=== PATIENT | female | born 1950 | race Caucasian/White ===

== ENCOUNTER 2024-12-19 15:52 | Inpatient (IN) | payer OTHER, SELFPAY ==
[2024-12-19 12:06] VITALS: BP 124/83
[2024-12-19 12:32] LABS: Hematocrit 39.9 % (37.0-47.0); Hemoglobin 13.8 g/dL (12.0-16.0); Mean Corp Hgb Conc. 34.6 g/dL (33.0-37.0); Mean Corpuscular Volume 91.9 fL (81.0-99.0); Nucleated Red Blood Cells % 0 %; Platelet Count 185 10^3/uL (130-400); Red Cell Dist. Width 18.1 % (11.5-14.5)
[2024-12-19 12:41] LABS: ALT (SGPT) 88 U/L (0-35); AST (SGOT) 274 U/L (14-36); Albumin 3.6 g/dl (3.5-5.0); Alkaline Phosphatase 193 U/L (38-126); Blood Urea Nitrogen 51 mg/dl (7-17); Calcium 8.8 mg/dl (8.4-10.2); Carbon Dioxide 19 mmol/L (22-30); Chloride 101 mmol/L (98-107); Glucose 96 mg/dl (70-99); Potassium 4.7 mmol/L (3.5-5.1); Sodium 132 mmol/L (135-145); Total Protein 6.8 g/dl (6.3-8.2); eGFR 33.84
--- NOTE | 2024-12-19 13:26 | ED.GENMED ---
Addendum entered and electronically signed by Cristopher Cortez DO 12/19/24 17:19:
Discussed with transfer center at [place] no beds are available at this time
Addendum entered and electronically signed by Cristopher Cortez DO 12/19/24 16:39:
Update family request transfer to [facility]
Will call to try to facilitate
Original Note:
History of Present Illness
General
Chief Complaint: Abnormal Lab Value
Source: patient, spouse and family
Exam Limitations: none
Time Seen by Provider: 12/19/24 12:57
Nursing documentation reviewed up to this point in time: agreed with
History of Present Illness
History of Present Illness:
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 intake symptoms started a few months ago when she and her spouse are in [place], on a cruise, had a sinus
infection that improved patient's symptoms never improved no fever no weight loss that she knows of, no known jaundice although she has a prosthetic right eye no seafood exposure, had outpatient blood work that showed elevated bili sent to the ER
for evaluation I did discuss her case with family and [id number] who is a hospitalist at [facility] apparently her ocular melanoma can metastasize
Phy Exam
Physical Exam
Physical Exam:
Physical Exam
General: no apparent distress, not acutely ill
Neck: Prosthetic right eye slight jaundice of the left
Heart: s1/s2 regular rate and rhythm, no murmur. equal radial pulses.
Lungs: no acute respiratory distress. clear bilaterally
Abdomen: Distended question mass to the upper abdomen
Neuro: alert and oriented. no focal neurological deficits
Skin: no rash
Psychiatric: well kept. interactive and cooperative
Extremities: no edema.
Course
Orders/Labs/Results
Orders:
Orders
12/19/24 12:23
Complete Blood Count/With Diff Urgent
Comprehensive Metabolic Panel Urgent
Lipase Urgent
Comment: ADD ON
12/19/24 13:15
CT Abd/pelvis W Iv Cont Urgent
Comment:
Reason For Exam: Abdominal pain jaundice history of melanoma
0.9% Sodium Chloride 1000 ml [Nss] 1,000 ml IV BOLUS
12/19/24 13:27
Add On- LAB Urgent
Tests Added?: lipase
12/19/24 13:34
Hepatitis A IgM Antibody Urgent
Hepatitis B Core Ab, IgM Urgent
Hepatitis B Surface Antibody Urgent
Hepatitis B Surface Antigen Urgent
Hepatitis C Antibody Urgent
Abnormal Lab Results
12/19/24
12:23
WBC 15.7 H 10^3/uL
(4.8-10.8)
MCH 31.8 H pg
(27.0-31.0)
RDW 18.1 H %
(11.5-14.5)
Abs Immat Gran (auto) 0.1 H 10^3/uL
(0-0.05)
Absolute Neuts (auto) 12.0 H 10^3/uL
(1.4-6.5)
Absolute Monos (auto) 1.2 H 10^3/uL
(0.1-0.6)
Immature Gran % 0.7 H %
(0-0.5)
Neutrophils % 76.1 H %
(42.2-75.2)
Lymphocytes % 15.3 L %
(20.5-51.1)
Sodium 132 L mmol/L
(135-145)
Carbon Dioxide 19 L mmol/L
(22-30)
BUN 51 H mg/dl
(7-17)
Creatinine 1.6 H mg/dL
(0.6-1.0)
Total Bilirubin 8.3 H mg/dl
(0.2-1.3)
AST 274 H U/L
(14-36)
ALT 88 H U/L
(0-35)
Alkaline Phosphatase 193 H U/L
(38-126)
Lipase 330 H U/L
(23-300)
12/19/24 12:23
12/19/24 12:23
Vital Signs
Initial and Last Documented VS:
Initial Vital Signs
Temp Pulse Resp BP Pulse Ox
98.0 F 109 16 124/83 98
12/19/24 12:06 12/19/24 12:06 12/19/24 12:06 12/19/24 12:06 12/19/24 12:06
Last Documented Vital Signs
Temp Pulse Resp BP Pulse Ox
98.0 F 109 16 124/83 98
12/19/24 12:06 12/19/24 12:06 12/19/24 12:06 12/19/24 12:06 12/19/24 13:27
MDM/Problems Addressed
Differential Diagnosis Includes:
Primary malignancy metastatic disease biliary tract disease stones hepatitis
MDM/Problems Addressed:
Obstructive pattern
Chronic conditions affecting care: Cancer
Acute Exacerbation and/or Progression of Chronic Illness: Cancer
*Radiology
Radiology exam reviewed: radiology read reviewed
*Pulse Oximetry
SaO2: 98
Oxygen Mode of Delivery: Room air
Patient hypoxic: no
*EKG
Interpreted by ED Provider?: Yes
Interpretation: abnormal
Comparison EKG: no comparison EKG present
Heart Rate: 78
Rate: normal
Rhythm: sinus
Ischemia: non-specific ST changes
*Field Manager Interpretation
Rate: normal
Interpretation: normal
Heart Rate: 78
Rhythm: sinus
*Critical Care Note
Total Time (30-74mins, 75-104mins- exclusive of procedures): Not Applicable
Update Note
Update Note:
3:[address] noted, report noted reviewed with patient and family and [id number] who is a hospitalist
ED Attending Note
-
Portions of this chart may have been created with voice recognition software.� Occasional wrong word or��sound alike� substitutions may have occurred due to the inherent limitations of voice recognition software.
Discharge Plan
Departure
Patient Disposition: Admit
Date of Disposition: 12/19/24
Time of Disposition: 15:34
Admit to: Med/Surg
Presentation/result/management discussed w/ accepting MD/DO: Hospitalist
Patient with high blood pressure during this ER visit?: No
Condition: Serious
Discharge Problem:
Liver mass
Referrals:
Yovani Gaffney MD [Family Provider, Internal Medicine]
Interventions
Interventions:
*Risk Screen - Suicide Last Done: 12/19/24 12:06
*Neglect/Abuse Screening Last Done: 12/19/24 12:06
Discharge Date and Time
Print Language: WELSH
[2024-12-19] MEDS: NSS 1000 IV (13:33)
[2024-12-19 14:24] LABS: Lipase 330 U/L (23-300)
--- NOTE | 2024-12-19 15:11 | HPS.HSE ---
Family Physician
-
Family Physician: Yovani Gaffney
Chief Complaint
-
fatigue, nausea
History of Present Illness
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 intake symptoms started a few weeks. patient stated dry heaving. she did have some diarrhea a month ago. patient
also complained of b/l LE redness, skin peeling and drainage for past one or two week. patient is on oral abx for past three days. she had a blood work done as an outpatient and noted to have elevated TBili. Patient denies any headache, dizziness
or syncope. Patient denied any fever, chills, cough, congestion. Patient denied any abdominal pain. Patient denied dysuria hematuria. Since she is in the ER, abdomen is distended.
CT with impression of Markedly enlarged liver containing numerous enhancing lesions of varying size suspicious for hepatic metastatic disease. There is a large central lesion measuring up to 12 cm with mild mass effect on the central portal veins. A
primary liver cancer is also a diagnostic consideration. 17 mm staghorn calculus within the upper pole of the RIGHT kidney. Small amount of gas within the adjacent calyces as well as small amount of gas seen within the decompressed bladder, however
no significant inflammatory changes seen within the right renal pelvis or along the ureter. Findings may represent infected stone or ascending urinary tract infection. Small amount of free fluid within the pelvis.
Patient received fluids in the ER. Hepatic panel sent from ER. Admitting for further management
Medical History
Past Medical History
Past Medical History: Reports Other
Additional Past Medical History:
Ocular melena
Past Surgical History: Reports Other
Additional Past Surgical History:
Melanoma resection with prosthetic right eye
Social History
Tobacco: Non-smoker
Alcohol: None
Drug: None
Personal:
Living: With Family
Family History
Family History: Not pertinent
Allergies / Home Medications
Allergies reflects when Allergies were last updated in [employer].
Home Medications with original date entered in [employer]
Allergy/Medication List:
Allergies
Allergy/AdvReac Type Severity Reaction Status Date / Time
No Known Allergies Allergy Verified 12/19/24 12:09
Review of Systems
-
Constitutional: Reports Fatigue
EENT: Reports No Symptoms
Respiratory: Reports No Symptoms
Cardiac: Reports No Symptoms
Abdomen/GI: Reports Nausea and Diarrhea
: Reports No Symptoms
Musculoskeletal: Reports No Symptoms
Skin: Reports Other (Bilateral lower extremities rash)
Neurological: Reports Weakness
Endocrine: Reports No Symptoms
Hematologic/Lymphatic: Reports No Symptoms
Psych: Reports No Symptoms
Physical Exam
Vital Signs
Vital Signs
Temp Pulse Resp BP Pulse Ox
98.0 F 109 16 124/83 98
12/19/24 12:06 12/19/24 12:06 12/19/24 12:06 12/19/24 12:06 12/19/24 13:27
Physical Exam
General: Well Developed, Well Nourished and No Apparent Distress
HEENT: NormoCephalic, Moist mucous membranes and Atraumatic
Respiratory: Clear
Cardiac: S1/S2 and Regular Rhythm; No Murmur or Rub
GI: Soft, Non Tender, Normal Bowel Sounds and Distended; No Organomegaly
Rectal: Deferred by Provider
Musculoskeletal: No Clubbing, No Cyanosis and No Edema
Skin: Rash and Other (Bilateral lower extremities redness, swelling oozing clear drainage and peeling of the skin)
Neuro: AO x 3 and Nonfocal/grossly intact
Psych: Calm
Laboratory Results
-
12/19/24 12:23
12/19/24 12:23
Laboratory Results
Total Bilirubin 8.3 mg/dl (0.2-1.3) H 12/19/24 12:23
AST 274 U/L (14-36) H 12/19/24 12:23
ALT 88 U/L (0-35) H 12/19/24 12:23
Alkaline Phosphatase 193 U/L (38-126) H 12/19/24 12:23
Lipase 330 U/L (23-300) H 12/19/24 12:23
Data Reviewed
-
CT Scan: Report Reviewed by me
Lab Data: Labs Reviewed by me
Impression/Plan
-
# Obstructive jaundice
# Concern for hepatic metastatic disease
- WBCs 15.7, AST 274, ALT 88, ALK 193, lipase 330 Tbili 8.3
- Hep panel pending
- CT abdomen pelvis Markedly enlarged liver containing numerous enhancing lesions of varying size suspicious for hepatic metastatic disease. There is a large central lesion measuring up to 12 cm with mild mass effect on the central portal veins. A
primary liver cancer is also a diagnostic consideration. 17 mm staghorn calculus within the upper pole of the RIGHT kidney. Small amount of gas within the adjacent calyces as well as small amount of gas seen within the decompressed bladder, however
no significant inflammatory changes seen within the right renal pelvis or along the ureter. Findings may represent infected stone or ascending urinary tract infection.Small amount of free fluid within the pelvis.
- Consult IR for biopsy
- Oncology consulted
# Right kidney calculus
- Obtain UA
- Urology consulted
#b/l LE redness/swelling likely cellulitis
-ctm
-iv Ancef continued
-wound care consulted.
# Melanoma of the eye
- History of resection with right prosthetic eye
# Hyponatremia/metabolic acidosis/acute kidney injury likely from dehydration
- Sodium 132, CO2 19, creatinine 1.6
- Received normal saline in the ER
- BMP in the morning
# DVT prophylaxis
- Lovenox
# CODE STATUS
- Full code
[2024-12-19 15:39] VITALS: BP 124/72
--- NOTE | 2024-12-19 15:54 | W.PN.UPDATE ---
Addendum entered and electronically signed by Gilda Olea MD 12/19/24 20:35:
UA inflamed. Antibiotics changed to IV Ceftriaxone.
Original Note:
Update Note
Progress Note Update
This is an addendum to H&P written by SPACE SYSTEM[employer] OPERATIONS SUPERINTENDENT Bernice Yepez
I saw and examined the patient.
The SPACE [employer] OPER[employer] SUPERINTENDENT's note was reviewed and I agree with the note.
Comment:
Ms. Vandana Chanel is a 74 yo woman with hx ocular melanoma s/p resection several years ago who presents to the ER as outpatient blood work showed elevated bilirubin.
Triage VS: T 98, P 109, RR 16, BP 124/83, SpO2 98%
On exam patient is awake, alert, in no distress. + jaundice; bilateral lower extremity swelling, redness with skin peeling.
LABS: WBC 15.7, Hg 13.8, PLT 185, Na 132, K+ 4.7, CO2 19, BUN 51, Cr 1.6, T. Bili 8.3, AST 274, ALT 88, Alk Phos 193, Lipase 330
CT A/P
IMPRESSION:
1. Markedly enlarged liver containing numerous enhancing lesions of varying size suspicious for hepatic metastatic disease. There is a large central lesion measuring up to 12 cm with mild mass effect on the central portal veins. A primary liver
cancer is also a diagnostic consideration.
2. 17 mm staghorn calculus within the upper pole of the RIGHT kidney. Small amount of gas within the adjacent calyces as well as small amount of gas seen within the decompressed bladder, however no significant inflammatory changes seen within the
right renal pelvis or along the ureter. Findings may represent infected stone or ascending urinary tract infection
3. Small amount of free fluid within the pelvis.
4. Additional findings above.
Numerous liver masses suspicious for hepatic metastatic disease versus primary liver cancer
-Oncology and IR consult
-patient and family interested in transfer to [place] - discussing with ER staff now
Bilateral lower extremity swelling and erythema
bilateral lower extremity Cellulitis
-IV Cefazolin
-bilateral LE US
Abnormal finding on CT with 17mm staghorn calculus within upper pole right kidney
-awaiting UA
-will discuss with Urology
Additional plan per [employer] OPERATIONS SUPERINTENDENT note
[2024-12-19 16:33] LABS: Urine Character Cloudy (Clear)
[2024-12-19 16:43] VITALS: BMI 33.0
[2024-12-19 16:57] LABS: Urine Squamous Cell 16-20 /LPF (Few); Urine White Cell 50-60 /HPF (0-5)
--- NOTE | 2024-12-19 16:59 | CM ---
CM reviewed chart and met with pt bedside in ED. Pt lives with her in first floor apartment, no DONNY.
Independent in ADLs and personal care at baseline, ambulates without assistance. NO DME
No hx VN/SNF.
PCP: Yovani Gaffney
Pharmacy: [facility] , [place]
Anticipate discharge home, CM will continue to follow for all discharge planning needs.
[2024-12-19 18:11] VITALS: BP 131/75
[2024-12-19 18:22] VITALS: BMI 31.9
[2024-12-19 18:43] LABS: Hepatitis B Surface Antigen Negative (Negative)
[2024-12-19 18:59] LABS: Hepatitis C Antibody Negative (Negative)
[2024-12-19] MEDS: STERILE WATER FOR INJECTION 10 ML IV (20:39)
[2024-12-19] MEDS: ROCEPHIN 1000 MG IV (20:39)
[2024-12-19 23:00] VITALS: BP 110/56
[2024-12-20] VITALS (19 sets, daily range): BP systolic 70–122; BP diastolic 59–84; BMI 31.7
[2024-12-20 08:23] LABS: Hematocrit 36.7 % (37.0-47.0); Hemoglobin 12.7 g/dL (12.0-16.0); Mean Corp Hgb Conc. 34.6 g/dL (33.0-37.0); Mean Corpuscular Volume 92.4 fL (81.0-99.0); Platelet Count 160 10^3/uL (130-400); Red Cell Dist. Width 18.2 % (11.5-14.5)
[2024-12-20 08:50] LABS: ALT (SGPT) 90 U/L (0-35); AST (SGOT) 235 U/L (14-36); Albumin 3.0 g/dl (3.5-5.0); Alkaline Phosphatase 159 U/L (38-126); Blood Urea Nitrogen 54 mg/dl (7-17); Calcium 8.2 mg/dl (8.4-10.2); Carbon Dioxide 20 mmol/L (22-30); Chloride 102 mmol/L (98-107); Estimated Creatinine Clearance 30 ml/min; Glucose 91 mg/dl (70-99); Magnesium 2.4 mg/dl (1.6-2.3); Potassium 4.4 mmol/L (3.5-5.1); Sodium 131 mmol/L (135-145); Total Protein 5.9 g/dl (6.3-8.2); eGFR 36.57
[2024-12-20] MEDS: NSS 1000 IV ×2 (09:22→21:13)
--- NOTE | 2024-12-20 10:26 | WOUNDNOTE ---
[facility] RN NOTE: Reviewed chart and met with patient and family and Dr. dHez. Patient with cellulitic skin with heavy drainage and circumlentally open areas L>R. Legs were gently cleaned and adaptic and alginate applied. No odor noted. Pain medication
ordered for future wound care, but patient wanted to hold off today due to nausea concerns. Will hold off on compression until after ultrasound. Heels and sacrum intact. Patient demonstrates good mobility and reports decreased appetite in the past
few weeks.
--- NOTE | 2024-12-20 10:26 | W.PN.UPDATE ---
Update Note
Progress Note Update
- Pt scheduled for IR guided liver biopsy this afternoon
- Of note, on re-review of CT performed yesterday, there is a filling defect at the confluence of the left and middle hepatic veins with extension into the IVC suspicious for thrombus. Uncertain if tumor thrombus vs. bland. No definitive enhancement
appreciated. There is also severe compression of the intrahepatic IVC. Addendum to report made and Dr. Hdez made aware.
[2024-12-20 11:15] LABS: INR 1.63; PT 19.6 Sec (11.4-14.6)
--- NOTE | 2024-12-20 11:21 | W.PN.HOSP.TC ---
Addendum entered and electronically signed by Pietro Hdez MD 12/20/24 12:36:
Discussed with GI,reviewed images with Dr Seaman and o not think MRI is necessary. no biliary obstruction. LFT's likely elevated due to liver mets. will cancel MRI
Per IR heparin can be started at 8pm tonite
Original Note:
Today's Communication/Plan
-
Monitor vital signs see plan
Liver biopsy today
Postbiopsy, IR will let us know when to start anticoagulation
Discussed with [id number] at bedside
Oncology evaluation
Check MRI with MRCP, GI evaluation
Continue with antibiotics
Assessment / Plan
Assessment / Plan
General: Well Developed, Well Nourished and No Apparent Distress
HEENT: NormoCephalic, Moist mucous membranes and Atraumatic
Respiratory: Clear
Cardiac: S1/S2 and Regular Rhythm; No Murmur or Rub
GI: Soft, Non Tender, Normal Bowel Sounds and Distended
Musculoskeletal: No Edema
Skin: Rash and Other (Bilateral lower extremities redness, swelling oozing clear drainage and peeling of the skin)
Neuro: AO x 3 and Nonfocal/grossly intact
Psych: Calm
Jaundice, suspect obstructive
# Concern for hepatic metastatic disease
- WBCs 15.7, AST 274, ALT 88, ALK 193, lipase 330 Tbili 8.3
- Hep panel negative
- CT abdomen pelvis Markedly enlarged liver containing numerous enhancing lesions of varying size suspicious for hepatic metastatic disease. There is a large central lesion measuring up to 12 cm with mild mass effect on the central portal veins. A
primary liver cancer is also a diagnostic consideration. 17 mm staghorn calculus within the upper pole of the RIGHT kidney. Small amount of gas within the adjacent calyces as well as small amount of gas seen within the decompressed bladder, however
no significant inflammatory changes seen within the right renal pelvis or along the ureter. Findings may represent infected stone or ascending urinary tract infection.Small amount of free fluid within the pelvis.
Discussed with radiology, added addendum as there is suspicion of filling defect at the confluence of the left and middle hepatic veins with extension into the IVC suspicious for thrombus. There is also severe compression of intrahepatic IVC.
Currently patient is due for IR guided liver biopsy. Post biopsy IR will let us know when to start IV heparin.
- Oncology consulted
History of ocular melanoma status post resection 3 years ago. This can likely metastasized to liver. Will await biopsy
Concern for obstructive jaundice, GI evaluation. Check MRI abdomen.
# Right kidney calculus
CT with staghorn calculi, urology consulted
Spoke with Dr. Harrison, no surgery planned in short-term
Continue with ceftriaxone
Follow urine culture
ua noted; urine cx pending
# Hyponatremia/metabolic acidosis/acute kidney injury likely from dehydration
- Sodium 132, CO2 19, creatinine 1.6 on admission
Creatinine 1.5 today, monitor
Continue with IVF
Check renal lites
#b/l LE redness/swelling likely cellulitis
-ctm
Continue ceftriaxone
Venous ultrasound negative for DVT
-wound care consulted.
# Melanoma of the eye
- History of resection with right prosthetic eye
# DVT prophylaxis
- no pharm ppx given need for liver biopsy; post OP IR will let us know regarding anticoagulation
# CODE STATUS
- Full code
I spent a total of 56 minutes with the patient or on the floor. More than 50% of this time involved counseling and coordination of care.
Anticipated Discharge: > 48 hours
Subjective/Interval History
-
Date of Service: December 20, 2024
Denies abdominal pain
Objective Data
-
Labs:
Laboratory Results
12/20/24 12/20/24
08:03 10:56
WBC 13.6 H
Hgb 12.7
Hct 36.7 L
Plt Count 160
PT 19.6 H
INR 1.63
Sodium 131 L
Potassium 4.4
Chloride 102
Carbon Dioxide 20 L
BUN 54 H
Creatinine 1.5 H
Glucose 91
Calcium 8.2 L
Total Bilirubin 6.5 H
AST 235 H
ALT 90 H
Alkaline Phosphatase 159 H
Vital Signs:
Vital Signs
Temp Pulse Resp BP Pulse Ox
97.6 F 80 18 101/66 99
12/20/24 10:45 12/20/24 10:45 12/20/24 10:45 12/20/24 10:45 12/20/24 10:45
--- NOTE | 2024-12-20 11:48 | CM ---
Patient chart reviewed
US today neg BLE DVT
liver biopsy today
PLAN: tbd, follow hospital progress, CM to follow for needs
--- NOTE | 2024-12-20 12:13 | CON.ONC ---
Consultation
-
Date Consultation Requested: 12/19/24
Date Consultation Performed: 12/20/24
Requesting Provider: Lucho Queen
Performing Provider: Richard Dsouza
Reason for Consultation: liver lesions
Impression
Impression
liver lesions
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
hyponatremia
JERROD
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
Plan
Plan
1. Liver lesions - unclear etiology
-w/ h/o right eye occular melanoma - concern for systemic metastatic disease
-for IR liver biopsy today - await pathology
-check CT chest non-contrast - w/ elevated creatinine
-outpt PET/CT
-additional discussion will be had about potential treatment options once pathology available for review
2. Hepatic vein thrombus - filling defect at the confluence of the left and middle hepatic veins which extends into the IVC
-heparin gtt - once biopsy completed
Will continue to follow with you.
Patient History
History of Present Illness
74y/o female seen in consultation today regarding liver lesions appreciated on CT abdomen/ pelvis.
The patient presented to the [facility] ER on 12/19 w/ nausea and decreased PO intake. CT abd/pelvis imaging in the ER revealed a markedly enlarged liver w/numerous enhancing lesions of varying size suspicious for hepatic metastatic disease. A large
central lesion measuring up to 12 cm with mild mass effect on the central portal veins was appreciated. In addition, a filling defect at the confluence of the left and middle hepatic veins which extends into the IVC was appreciated, suspicious for
thrombus. No definitive enhancement was identified which would indicate tumor thrombus. A 17 mm staghorn calculus within the upper pole of the right kidney was appreciated. Findings may represent infected stone or ascending urinary tract infection
She is scheduled for IR biopsy of liver lesion today.
Past-Medical/Surgical History
PMH:
occular melanoma - s/p surgery at [facility] w/ Dr. Mary To
prosthetic right eye
Social History
Tobacco: Non-smoker
Alcohol: None
Family History
Family History: Not pertinent
Allergies: NKDA
Patient Medication
�Medication �Instructions �Recorded �Confirmed �Last Taken �Type
acetaminophen 325 mg tablet 650 mg PO Q6HPRN PRN MILD PAIN 12/19/24 12/19/24 12/18/24 History
(Tylenol)
cephalexin 500 mg capsule 500 mg PO Q6H 12/19/24 12/19/24 12/19/24 History
Active Medications
Generic Name Dose Route Start Last Admin
Trade Name Freq PRN Reason Stop Dose Admin
Bisacodyl 10 mg 12/19/24 18:16
Bisacodyl 10 Mg Rectal Suppository RECTAL 01/16/25 18:15
[id number] PRN
constipation
Ceftriaxone Sodium 1,000 mg 12/19/24 20:00 12/19/24 20:39
Ceftriaxone 1000 Mg / 10 Ml Vial IV 1,000 mg
Q24H STEVE Administration
Hydromorphone HCl 0.5 mg 12/20/24 09:51
Hydromorphone 0.5 Mg/0.5 Ml Syringe IV 01/03/25 09:50
Q4HPRN PRN
moderate to severe pain
Sodium Chloride 1,000 mls @ 100 mls/hr 12/20/24 08:30 12/20/24 09:22
Nss IV 1,000 mls
.Q10H STEVE Administration
Polyethylene Glycol 17 grams 12/19/24 18:16
Polyethylene Glycol Powder 17 Grams Packet PO 01/16/25 18:15
DAILYPRN PRN
constipation
Senna/Docusate Sodium 1 tablet 12/19/24 18:16
Docusate W/Senna (Fe-Colace) Tablet PO 01/16/25 18:15
BIDPRN PRN
constipation
Sodium Chloride 0 flush 12/19/24 17:00
Sodium Chloride 0.9% (Flush) Syringe IV 01/16/25 16:59
PER PROTOCOL STEVE
Sterile Water 10 ml 12/19/24 20:00 12/19/24 20:39
Sterile Water For Injection 10 Ml Vial IV 01/16/25 19:59 10 ml
Q24H STEVE Administration
Review of Systems
-
As per HPI.
Physical Exam
Labs
Lab Results
WBC 13.6 10^3/uL (4.8-10.8) H 12/20/24 08:03
RBC 3.97 10^6/uL (4.20-5.40) L 12/20/24 08:03
Hgb 12.7 g/dL (12.0-16.0) 12/20/24 08:03
Hct 36.7 % (37.0-47.0) L 12/20/24 08:03
MCV 92.4 fL (81.0-99.0) 12/20/24 08:03
MCH 32.0 pg (27.0-31.0) H 12/20/24 08:03
MCHC 34.6 g/dL (33.0-37.0) 12/20/24 08:03
RDW 18.2 % (11.5-14.5) H 12/20/24 08:03
Plt Count 160 10^3/uL (130-400) 12/20/24 08:03
MPV 10.9 fL (7.4-10.4) H 12/20/24 08:03
Abs Immat Gran (auto) 0.1 10^3/uL (0-0.05) H 12/19/24 12:23
Absolute Neuts (auto) 12.0 10^3/uL (1.4-6.5) H 12/19/24 12:23
Absolute Lymphs (auto) 2.4 10^3/uL (1.2-3.4) 07/31/25 12:23
Absolute Monos (auto) 1.2 10^3/uL (0.1-0.6) H 12/19/24 12:23
Absolute Eos (auto) 0.0 10^3/uL (0-0.7) 12/19/24 12:23
Absolute Basos (auto) 0.0 10^3/uL (0-0.2) 12/19/24 12:23
Immature Gran % 0.7 % (0-0.5) H 12/19/24 12:23
Neutrophils % 76.1 % (42.2-75.2) H 12/19/24 12:23
Lymphocytes % 15.3 % (20.5-51.1) L 12/19/24 12:23
Monocytes % 7.6 % (1.7-9.3) 12/19/24 12:23
Eosinophils % 0.1 % (0-6) 12/19/24 12:23
Basophils % 0.2 % (0-2) 12/19/24 12:23
Creatinine 1.5 mg/dL (0.6-1.0) H 12/20/24 08:03
Vital Signs
Vital Signs
Temp Pulse Resp BP Pulse Ox
97.9 F 78 19 102/66 95
12/20/24 11:50 12/20/24 12:05 12/20/24 12:05 12/20/24 12:05 12/20/24 12:05
--- NOTE | 2024-12-20 12:16 | CON.ID ---
Consultation
-
Date/Time Consultation Requested: December 20, 2024
Date/Time Consultation Performed: December 20, 2024 1215
Requesting Provider: Dr. Pietro Hdez
Performing Provider: Dr. Francie Engel
Reason for Consultation: UTI, Staghorn calculus
Chief Complaint / Past History
Chief Complaint
Poor appetite and weakness
History of Present Illness
History obtained from patient and her [id number] at bedside. She is a 74-year-old female with history of right ocular melanoma requiring enucleation in 2022, which the patient never followed up with oncology who presented to the hospital November
due to 6-week history of poor appetite, progressive weakness. About 2 weeks ago she then developed bilateral lower extremity edema which then started weeping serous fluid and then developed wounds. She went to an urgent care for the lower
extremities who referred her to see her PCP. She was placed on cephalexin which lab work ordered. Patient noted to have elevated bilirubin, LFTs and she was directed to come to the hospital. CT of the abdomen and pelvis showed very enlarged liver
with multiple masses suspicious for metastases, mass effect from the central portal veins, small cyst filling defect at the left and middle hepatic veins extending to the IVC suspicious for thrombus. Also incidental findings of right staghorn
calculus with small amount of gas. Urine culture grew E. coli. She is currently on ceftriaxone. Patient denies dysuria, urinary urgency or flank pain. She does have tea colored urine. No fevers or chills. She reports abdominal distention that
started in the hospital. No abdominal pain. Positive nausea without vomiting. No diarrhea. The legs have stopped weeping. Per [id number], patient is averse to medical care. She has not undergone any routine screening including
mammography, colonoscopy.
Past History
Additional Past Medical History:
Ocular melanoma status post right enucleation 2022
Allergy History:
No Known Allergies Allergy (Verified 12/19/24 12:09)
Medications Reviewed: Yes
Current Antibiotics:
Ceftriaxone
Social History
Tobacco: Non-Smoker
Alcohol: None
Drug: None
Personal:
Living: With Family
Family History
Family History: Not Pertinent
Review of Systems
Review of Systems
General: Change in Appetite; Negative Fever or Chills
HEENT: Negative Sinus Problems, Headache or Pharyngitis
Cardiovascular: Negative Chest Pain or Dyspnea
Respiratory: Negative Dyspnea or Cough
Gasteroenterology: Nausea; Negative Diarrhea
Genital / Urological: Negative Dysuria or Flank Pain
Endocrine: Weakness and Fatigue
Musculoskeletal: Negative Arthralgias
Neurological: Negative Dizziness
All systems: All other systems were reviewed and were negative
Vital Signs
Temp Pulse Resp BP Pulse Ox
97.9 F 74 16 96/65 95
12/20/24 11:50 12/20/24 12:10 12/20/24 12:10 12/20/24 12:10 12/20/24 12:10
Physical Exam
Physical Exam
Constitutional: No Acute Distress and Comfortable
Eyes: Other (Left sclera icteric; prosthetic right eye)
Cardiovascular: Regular Rate and S1/S2
Pulmonary: Clear
Gastrointestinal: Soft, Non Tender, Non Distended and Normal Bowel Sounds
Genito-Urinary: Negative CVA Tenderness
Extremities: Edema
Skin: Jaundice
Wound: Other (Reviewed today's wound photos: LLE with large superficial red wound encompassing anterior and lateral leg; RLE distal medial leg with superfical wound )
Neurological: AO x 3
Lab / Diagnostic Study Results
12/20/24 08:03
12/20/24 08:03
Abs Immat Gran (auto) 0.1 10^3/uL (0-0.05) H 12/19/24 12:23
Absolute Neuts (auto) 12.0 10^3/uL (1.4-6.5) H 12/19/24 12:23
Absolute Lymphs (auto) 2.4 10^3/uL (1.2-3.4) 12/19/24 12:23
Absolute Monos (auto) 1.2 10^3/uL (0.1-0.6) H 12/19/24 12:23
Absolute Basos (auto) 0.0 10^3/uL (0-0.2) 12/19/24 12:23
Immature Gran % 0.7 % (0-0.5) H 12/19/24 12:23
Neutrophils % 76.1 % (42.2-75.2) H 12/19/24 12:23
Lymphocytes % 15.3 % (20.5-51.1) L 12/19/24 12:23
Monocytes % 7.6 % (1.7-9.3) 12/19/24 12:23
Eosinophils % 0.1 % (0-6) 12/19/24 12:23
Basophils % 0.2 % (0-2) 12/19/24 12:23
PT 19.6 Sec (11.4-14.6) H 12/20/24 10:56
INR 1.63 12/20/24 10:56
Ur Squamous Epith Cells 16-20 /LPF (Few) 12/19/24 16:13
Microbiology Results
Micro:
12/19/24 16:13 Urine Culture - Preliminary
Urine Escherichia coli
12/19/24 21:47 MRSA Screen - Pending
Nose
12/19/24 CT a/p: Markedly enlarged liver containing numerous enhancing lesions of varying size suspicious for hepatic metastatic disease. There is a large central lesion measuring up to 12 cm with mild mass effect on the central portal veins. A
primary liver cancer is also a diagnostic consideration.
17 mm staghorn calculus within the upper pole of the RIGHT kidney. Small amount of gas within the adjacent calyces as well as small amount of gas seen within the decompressed bladder, however no significant inflammatory changes seen within the right
renal pelvis or along the ureter. Findings may represent infected stone or ascending urinary tract infection. Small filling defect at the confluence of the left and middle hepatic veins which extends into the IVC suspicious for thrombus. No
definitive enhancement identified which would indicate tumor thrombus. Severe compression of the intrahepatic IVC.
Assessment / Plan
# E. coli UTI
# Leukocytosis
-Right renal staghorn calculus with gas (from E. coli)
-Continue ceftriaxone pending sensitivity data
-Trend wbc
# BLE edema, weepage, wounds
- Edema due to poor venous return from liver mass compression of IVC
- No cellulitis
- Continue local wound care, compression when able, and leg elevation.
# Painless jaundice
# New finding of multiple liver mets s/p liver biopsy 12/20
# Portal vein thrombus
# hx R ocular melanoma s/p enucleation 2022. Pt did not pursue further work-up/staging at the time.
--- NOTE | 2024-12-20 12:50 | WOUNDNOTE ---
LEFT LOWER LEG
--- NOTE | 2024-12-20 12:51 | CON.GI ---
Addendum entered and electronically signed by Mirta Allison MD 12/20/24 19:20:
I personally performed a history and physical exam of the patient and discussed management with the resident. I reviewed the resident's note and agree with the documented findings and plan of care HPI/CC.
74-year-old female past medical history of melanoma presenting with fatigue, nausea, loss of appetite. Found to have elevated bilirubin with liver lesions. There was concern about her elevated bilirubin and that there was obstruction and she
needed stenting. I discussed with Dr. Seaman advanced endoscopist and reviewed images with him as well. The bile ducts are normal. The elevated bilirubin likely due to tumor burden. No need for intervention at this time endoscopically. I discussed
with patient and family at bedside and all questions were answered.
I discussed with the case and reviewed with the resident in detail both the history and management.
GI will sign off. Please call with any questions or issues.
Original Note:
Consultation
-
Date/Time Consultation Requested: 12/20/24 10:59
Date/Time Consultation Performed: 12/20/24 12:40
Requesting Provider: Pietro Hdez MD
Performing Provider: Francisco Martinez DO (Resident); Mirta Allison MD
Reason for Consultation: Hyperbilirubinemia
Medical History
Chief Complaint / HPI
Chief Complaint: Hyperbilirubinemia, Nausea, Loss of Appetite
History of Present Illness:
Vandana Chanel is a 74F with a PMHx of ocular melanoma status postresection (few years ago) who presented to the emergency department on 12/19 with fatigue, nausea, and loss of appetite for a few weeks. A couple of days prior to presentation, patient
also endorses dry heaving. Patient was initially evaluated in the outpatient setting where she was found to have a elevated total bilirubin and was sent to the emergency department. Patient denies any abdominal pain, fevers, urinary symptoms,
postprandial pain, dysphagia during the course of illness. In the emergency department patient presented as tachycardic with a distended abdomen and CT of the abdomen pelvis showed a markedly enlarged liver with numerous enhancing lesions
suspicious for metastatic disease. There was a large central 12 cm lesion with mass effect on the central portal veins. White blood cell count was 15.7 K, total bilirubin was 8.3, AST 274, ALT 88, alk phos 193, and lipase 330. At the time of
interview, patient just returned from interventional radiology and is with no acute complaints other than distended abdomen.
Past Medical History
Past Medical History: Other (Ocular melanoma)
Past Surgical History: Other (Resection of ocular melanoma)
Social History
Tobacco: Non-Smoker
Alcohol: None
Family History
Family History: Reviewed & Not Pertinent
Allergies / Home Medications
Allergy/AdvReac Type Severity Reaction Status Date / Time
No Known Allergies Allergy Verified 12/19/24 12:09
�Medication �Instructions �Recorded
acetaminophen 325 mg tablet 650 mg PO Q6HPRN PRN MILD PAIN 12/19/24
(Tylenol)
cephalexin 500 mg capsule 500 mg PO Q6H 12/19/24
Review of Systems
-
History Source: Patient
All other systems: A 12 pt ROS was Negative except as stated above in HPI
Vital Signs
Temp Pulse Resp BP Pulse Ox
97.9 F 78 21 93/59 97
12/20/24 11:50 12/20/24 12:21 12/20/24 12:21 12/20/24 12:21 12/20/24 12:20
Physical Exam
Exam
General: No Apparent Distress
HEENT: Anicteric
GI: Non Tender, Normal Bowel Sounds and Distended
Skin: Warm
Neuro: Awake
Psych: Calm
Results
WBC 13.6 10^3/uL (4.8-10.8) H 12/20/24 08:03
Hgb 12.7 g/dL (12.0-16.0) 12/20/24 08:03
Hct 36.7 % (37.0-47.0) L 12/20/24 08:03
MCV 92.4 fL (81.0-99.0) 12/20/24 08:03
Plt Count 160 10^3/uL (130-400) 12/20/24 08:03
Absolute Neuts (auto) 12.0 10^3/uL (1.4-6.5) H 12/19/24 12:23
PT 19.6 Sec (11.4-14.6) H 12/20/24 10:56
INR 1.63 12/20/24 10:56
Sodium 131 mmol/L (135-145) L 12/20/24 08:03
Potassium 4.4 mmol/L (3.5-5.1) 12/20/24 08:03
Chloride 102 mmol/L (98-107) 12/20/24 08:03
Carbon Dioxide 20 mmol/L (22-30) L 12/20/24 08:03
BUN 54 mg/dl (7-17) H 12/20/24 08:03
Creatinine 1.5 mg/dL (0.6-1.0) H 12/20/24 08:03
Calcium 8.2 mg/dl (8.4-10.2) L 12/20/24 08:03
Total Bilirubin 6.5 mg/dl (0.2-1.3) H 12/20/24 08:03
AST 235 U/L (14-36) H 12/20/24 08:03
ALT 90 U/L (0-35) H 12/20/24 08:03
Alkaline Phosphatase 159 U/L (38-126) H 12/20/24 08:03
Lipase 330 U/L (23-300) H 12/19/24 12:23
Hepatitis A IgM Ab Negative (Negative) 12/19/24 13:34
Hep Bs Antibody Negative 12/19/24 13:34
Hep B Core IgM Ab Negative (Negative) 12/19/24 13:34
Hepatitis C Antibody Negative (Negative) 12/19/24 13:34
Diagnostic Image Results:
CT ABD/PELV (12/19)
1. Markedly enlarged liver containing numerous enhancing lesions of varying size suspicious for hepatic metastatic disease. There is a large central lesion measuring up to 12 cm with mild mass effect on the central portal veins. A primary liver
cancer is also a diagnostic consideration.
2. 17 mm staghorn calculus within the upper pole of the RIGHT kidney. Small amount of gas within the adjacent calyces as well as small amount of gas seen within the decompressed bladder, however no significant inflammatory changes seen within the
right renal pelvis or along the ureter. Findings may represent infected stone or ascending urinary tract infection
3. Small amount of free fluid within the pelvis.
Assessment / Plan
-
Vandana Chanel is a 74F with a PMHx of ocular melanoma who is presenting with multiple weeks of fatigue, nausea, and loss of appetite as well as elevated bilirubin on outpatient labs. CT imaging of the abdomen pelvis reveals a markedly enlarged
liver containing numerous enhancing lesions of varying sizes suspicious for hepatic metastatic disease with a large central lesion measuring up to 12 cm with mild mass effect on the central portal veins. There is no ductal dilatation present on
imaging. Gastroenterology service was consulted to evaluate for biliary blockage and possible ERCP. After reviewing the images, we feel the patient's presentation is all from liver metastases. There is no need for MRI or GI intervention at this
time. GI will sign off at this time. Please see attending addendum for additional details.
Total Time Spent with Patient (in minutes): 31
Data Reviewed
-
CT Scan: Image Personally Visualized and interpreted, Report Reviewed by me and Discussed with Patient
-
-
Thank you for consultation and allowing me to participate in the patient's care. Please call the bone glue maker GI physician during the after hours with any questions or concerns.
--- NOTE | 2024-12-20 13:35 | PTCARENOTE ---
Pt back on unit after LE Ultrasound and liver biopsy. VSS, pt denies pain. bandage on right upper abdomen c/d/i. Pt advanced to regular diet.
--- NOTE | 2024-12-20 15:27 | CONS.URO ---
Consultation
-
Date/Time Consultation Performed: 12/20/2024 0635
Performing Provider: Hunter
Reason for Consultation: right neprolithiasis, UTI
Medical History
History of Present Illness
Pt admitted with newly discovered hepatic masses.
CT also detected right renal stones.
Past Medical History
Past Medical History: Other (ocular melanoma)
Allergies/Home Medications
Allergies
Allergy/AdvReac Type Severity Reaction Status Date / Time
No Known Allergies Allergy Verified 12/19/24 12:09
Home Medications
�Medication �Instructions �Recorded �Confirmed �Type
acetaminophen 325 mg tablet 650 mg PO Q6HPRN PRN MILD PAIN 12/19/24 12/19/24 History
(Tylenol)
cephalexin 500 mg capsule 500 mg PO Q6H 12/19/24 12/19/24 History
Physical Exam
Vital Signs
Vital Signs
Temp Pulse Resp BP Pulse Ox
97.7 F 90 14 117/64 97
12/20/24 15:08 12/20/24 15:08 12/20/24 15:08 12/20/24 15:08 12/20/24 15:08
Lab / Testing Results
Laboratory Results
12/20/24 08:03
Physical Exam
adult female in bed
General: No Apparent Distress
Genito-urinary: Costovertebral Angle Tend (mild, right)
Skin: Warm
Neuro: Awake and Alert
Psych: Calm
Assessment / Plan
-
Right partial staghorn renal calculus -- non-obstructing
E.coli UTI
Rec: tx UTI; tx of stone shoul be delayed until infection is cleared/minimized
Data Reviewed
-
CT Scan: Image personally visualized and interpreted
Lab Data: Labs Reviewed
Old Records: Reviewed
[2024-12-20 20:30] LABS: Hematocrit 35.8 % (37.0-47.0); Hemoglobin 12.7 g/dL (12.0-16.0); Mean Corp Hgb Conc. 35.5 g/dL (33.0-37.0); Mean Corpuscular Volume 89.7 fL (81.0-99.0); Platelet Count 153 10^3/uL (130-400); Red Cell Dist. Width 17.9 % (11.5-14.5)
[2024-12-20 20:41] LABS: APTT 35.9 Sec (23.4-35.0)
[2024-12-20] MEDS: STERILE WATER FOR INJECTION 10 ML IV (20:47)
[2024-12-20] MEDS: ROCEPHIN 1000 MG IV (20:47)
[2024-12-20] MEDS: HEPARIN 25000 UNITS/250 ML IV (21:13)
[2024-12-21 03:02] VITALS: BP 91/46
[2024-12-21 03:45] LABS: APTT 80.1 Sec (23.4-35.0)
[2024-12-21 03:49] VITALS: BMI 32.2
[2024-12-21 04:25] VITALS: BP 101/57
[2024-12-21 07:00] VITALS: BP 107/50
[2024-12-21] MEDS: NSS 1000 IV ×2 (07:12→17:29)
[2024-12-21 10:31] LABS: Hematocrit 36.3 % (37.0-47.0); Hemoglobin 12.4 g/dL (12.0-16.0); Mean Corp Hgb Conc. 34.2 g/dL (33.0-37.0); Mean Corpuscular Volume 93.6 fL (81.0-99.0); Nucleated Red Blood Cells % 0 %; Platelet Count 167 10^3/uL (130-400); Red Cell Dist. Width 18.6 % (11.5-14.5)
--- NOTE | 2024-12-21 10:58 | W.PN.URO.CBU ---
Today's Communication / Plan
-
call if fevr over 101.5 or severe rt flankpain
Assessment / Plan
-
pt with either ascending gas or emphysematous pyelo asx afebrile the family and pt awre aware of dilemma thatif pt has emphysematous pyerlo she may need eithe rperc tibes u scope anr mnel=[hrectomy and she is facing tx based on bx that will
cause further immno syppresin will tat with targeted iv abs andif satbe outpatien t xrays t see if gas gone other joseph irad to perc if possible
Diagnosis
-
Date of Service: December 21, 2024
-
Patient Diagnosis:
RT STAGHORN CALUIS ASX AND AIR IN BLADDER AND RT KIDNEY ASX E COLI HOVER LIVER CANCER AWAIT BX POSSIBLE METASTATIC MELANOMMA BUT POSSIBLE PRIMARY LIVER YET GI MED BELIEVES NOT PRIMARY
Post Op Day:
Subjective
-
NO COMPLAINTS
Objective
-
Vital Signs
Temp Pulse Resp BP Pulse Ox
97.8 F 72 16 107/50 96
12/21/24 07:00 12/21/24 07:00 12/21/24 07:00 12/21/24 07:00 12/21/24 07:00
Intake and Output
12/20/24 12/21/24 12/22/24
06:59 06:59 06:59
Intake Total 1300 / 1300
Balance 1300 / 1300
Intake:
Oral fluids 1200 / 1200
IV piggybacks 100 / 100
Other:
Number of approximated MODERATE 4
amounts of urine
Laboratory Results
12/21/24 10:14
Review of Systems
-
: No Symptoms
Physical Exam
-
General - well developed, well nourished, no acute distress
Chest - clear bilaterally
Abdomen - soft, non-tender, positive bowel sounds, no CVAT, no incisional pain or distention
Genitalia - normal
Rectal - normal
Skin - warm & dry with no rash
Neuro - AOx3, no motor deficits
Extremities - no clubbing, no cyanosis, no edema
Incision - clean, dry
Dressing - clean, dry, intact
Care Review
Data Reviewed
Discussed with: Hospitalist, Nursing and Family
CT Scan: Image Pers Reviewed
Total Time Spent with Patient (in minutes): 45
[2024-12-21 11:06] LABS: APTT > 200 Sec (23.4-35.0)
[2024-12-21 11:24] LABS: Albumin 3.0 g/dl (3.5-5.0); Carbon Dioxide 23 mmol/L (22-30); Estimated Creatinine Clearance 38 ml/min; Total Protein 5.9 g/dl (6.3-8.2); eGFR 47.80
[2024-12-21 11:55] LABS: ALT (SGPT) 90 U/L (0-35); AST (SGOT) 227 U/L (14-36); Alkaline Phosphatase 184 U/L (38-126); Blood Urea Nitrogen 46 mg/dl (7-17); Calcium 8.3 mg/dl (8.4-10.2); Chloride 106 mmol/L (98-107); Glucose 91 mg/dl (70-99); Potassium 4.4 mmol/L (3.5-5.1); Sodium 133 mmol/L (135-145)
--- NOTE | 2024-12-21 12:00 | W.PN.HOSP.TC ---
Today's Communication/Plan
-
Monitor vital signs see plan
Continue with IV heparin
Oncology to see today
Follow-up pathology
Follow urine culture, continue with antibiotic
PT
Discussed with son
Assessment / Plan
Assessment / Plan
General: Well Developed, Well Nourished and No Apparent Distress
HEENT: NormoCephalic, Moist mucous membranes and Atraumatic
Respiratory: Clear
Cardiac: S1/S2 and Regular Rhythm; No Murmur or Rub
GI: Soft, Non Tender, Normal Bowel Sounds and Distended
Musculoskeletal: No Edema
Skin: Rash and Other (Bilateral lower extremities redness, swelling oozing clear drainage and peeling of the skin)
Neuro: AO x 3 and Nonfocal/grossly intact
Psych: Calm
Jaundice, suspect obstructive
# Concern for hepatic metastatic disease
- WBCs 15.7, AST 274, ALT 88, ALK 193, lipase 330 Tbili 8.3
- Hep panel negative
- CT abdomen pelvis Markedly enlarged liver containing numerous enhancing lesions of varying size suspicious for hepatic metastatic disease. There is a large central lesion measuring up to 12 cm with mild mass effect on the central portal veins. A
primary liver cancer is also a diagnostic consideration. 17 mm staghorn calculus within the upper pole of the RIGHT kidney. Small amount of gas within the adjacent calyces as well as small amount of gas seen within the decompressed bladder, however
no significant inflammatory changes seen within the right renal pelvis or along the ureter. Findings may represent infected stone or ascending urinary tract infection.Small amount of free fluid within the pelvis.
Discussed with radiology, added addendum as there is suspicion of filling defect at the confluence of the left and middle hepatic veins with extension into the IVC suspicious for thrombus. There is also severe compression of intrahepatic IVC.
Status post IR guided liver biopsy. Follow-up pathology. Oncology following.
Continue with IV heparin
History of ocular melanoma status post resection 3 years ago. This can likely metastasized to liver. Will await biopsy
Initially there was concern of obstructive jaundice however reviewed with GI and no need for MRI in GI think this is likely secondary to metastatic liver. Will continue to monitor
# Right kidney calculus
CT with staghorn calculi, urology consulted
Spoke with Dr. Harrison, no surgery planned in short-term
Continue with ceftriaxone
Follow urine culture, growing E. coli
# Hyponatremia/metabolic acidosis/acute kidney injury likely from dehydration
- Sodium 132, CO2 19, creatinine 1.6 on admission
Creatinine 1.3 today, monitor
Continue with IVF
#b/l LE redness/swelling likely cellulitis
-ctm
Continue ceftriaxone
Venous ultrasound negative for DVT
-wound care consulted.
# Melanoma of the eye
- History of resection with right prosthetic eye
# DVT prophylaxis
- IV heparin
# CODE STATUS
- Full code
I spent a total of 52 minutes with the patient or on the floor. More than 50% of this time involved counseling and coordination of care.
Anticipated Discharge: > 48 hours
Subjective/Interval History
-
Date of Service: December 21, 2024
Denies nausea
Objective Data
-
Labs:
Laboratory Results
12/21/24 12/21/24
03:23 10:14
WBC 13.9 H
Hgb 12.4
Hct 36.3 L
Plt Count 167
APTT 80.1 H > 200 H*
Sodium 133 L
Potassium 4.4
Chloride 106
Carbon Dioxide 23
BUN 46 H
Creatinine 1.2 H
Glucose 91
Calcium 8.3 L
Total Bilirubin 6.5 H
AST 227 H
ALT 90 H
Alkaline Phosphatase 184 H
Vital Signs:
Vital Signs
Temp Pulse Resp BP Pulse Ox
97.8 F 72 16 107/50 97
12/21/24 07:00 12/21/24 07:00 12/21/24 11:17 12/21/24 07:00 12/21/24 11:17
I&O
12/20/24 12/21/24 12/22/24
06:59 06:59 06:59
Intake Total 1300 / 1300
Balance 1300 / 1300
--- NOTE | 2024-12-21 13:08 | PTCARENOTE ---
Heparin gtt restarted at 1306 after 2 hour hold, at 1000 units/hour. PTT to be drawn at 1906.
--- NOTE | 2024-12-21 13:29 | W.PN.ONC ---
Today's Communication / Plan
-
check CT chest non-contrast
heparin gtt for hepatic vein thrombosis
Impression
Impression
liver lesions
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
hyponatremia
JERROD
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
Plan
Plan
1. Liver lesions - unclear etiology
-w/ h/o right eye occular melanoma - concern for systemic metastatic disease
-for IR liver biopsy yesterday - await pathology
-check CT chest non-contrast - w/ elevated creatinine
-outpt PET/CT
-additional discussion will be had as oupt about potential treatment options once pathology available for review
2. Hepatic vein thrombus - filling defect at the confluence of the left and middle hepatic veins which extends into the IVC
-heparin gtt - once biopsy completed
-transition to DOAC as outpt
Will continue to follow with you.
Subjective/Objective
Subjective/Objective
feels better, no new complaints
Vital Signs:
Vital Signs
Temp Pulse Resp BP Pulse Ox
97.8 F 72 16 107/50 97
12/21/24 07:00 12/21/24 07:00 12/21/24 11:17 12/21/24 07:00 12/21/24 11:17
Lab Results:
Laboratory Data
WBC 13.9 10^3/uL (4.8-10.8) H 12/21/24 10:14
Hgb 12.4 g/dL (12.0-16.0) 12/21/24 10:14
Plt Count 167 10^3/uL (130-400) 12/21/24 10:14
PT 19.6 Sec (11.4-14.6) H 12/20/24 10:56
INR 1.63 12/20/24 10:56
APTT > 200 Sec (23.4-35.0) H* 12/21/24 10:14
eGFR 47.80 12/21/24 10:14
Exam:
Gen: awake in NAD
CV: RRR
Pulm: CTAb
Abd: soft
Neuro: A&Ox3
Orders
Orders
Orders From Last 24 Hours
12/21/24 13:27
CT Chest W/o Iv Contrast Routine
--- NOTE | 2024-12-21 15:02 | W.PN.ID1 ---
Date of Service
Date of Service: December 21, 2024
Today's Communication
-Continue ceftriaxone d3
-At time of discharge, transition to cipro 500mg po bid through 01/01/25.
Assessment / Plan
# Kluyvera ascorbata UTI
# Leukocytosis improving
-Right renal staghorn calculus with gas (from bacteria)
-Pt asymptomatic
-Continue ceftriaxone d3
-At time of discharge, transition to cipro 500mg po bid through 01/01/25. (CrCl 38)
- Check baseline QTc in am
# BLE edema, weepage, wounds improving
- Edema due to poor venous return from liver mass compression of IVC
- No cellulitis
- Continue local wound care, compression when able, and leg elevation.
# Painless jaundice
# New finding of multiple liver mets s/p liver biopsy 12/20
# Portal vein thrombus
# hx R ocular melanoma s/p enucleation 2022. Pt did not pursue further work-up/staging at the time.
Chief Complaint
-: UTI
Subjective / Review of Systems
No complaints. Legs better. No flank pain. No urine sxs.
Vital Signs / Physical Exam
Vital Signs
Vital Signs
Temp Pulse Resp BP Pulse Ox
97.8 F 72 16 107/50 97
12/21/24 07:00 12/21/24 07:00 12/21/24 11:17 12/21/24 07:00 12/21/24 11:17
Physical Exam
Constitutional: No Acute Distress
Pulmonary: Clear
Genito-Urinary: Negative CVA Tenderness
Wound: Other (BLE dressings dry)
Neurological: AO x 3
Objective Data
Lab Data
Lab Results
12/21/24 10:14
12/21/24 10:14
PT 19.6 Sec (11.4-14.6) H 12/20/24 10:56
INR 1.63 12/20/24 10:56
APTT > 200 Sec (23.4-35.0) H* 12/21/24 10:14
Estimated Creat Clear 38 ml/min 12/21/24 10:14
Total Bilirubin 6.5 mg/dl (0.2-1.3) H 12/21/24 10:14
AST 227 U/L (14-36) H 12/21/24 10:14
ALT 90 U/L (0-35) H 12/21/24 10:14
Alkaline Phosphatase 184 U/L (38-126) H 12/21/24 10:14
Most recent labs reviewed.
Micro Results:
12/19/24 16:13 Urine Culture - Final
Urine Kluyvera ascorbata
12/19/24 21:47 MRSA Screen - Final
Nose No Methicillin Resistant Staphylococcus aureus isolated.
12/19/24 CT a/p: Markedly enlarged liver containing numerous enhancing lesions of varying size suspicious for hepatic metastatic disease. There is a large central lesion measuring up to 12 cm with mild mass effect on the central portal veins. A
primary liver cancer is also a diagnostic consideration.
17 mm staghorn calculus within the upper pole of the RIGHT kidney. Small amount of gas within the adjacent calyces as well as small amount of gas seen within the decompressed bladder, however no significant inflammatory changes seen within the right
renal pelvis or along the ureter. Findings may represent infected stone or ascending urinary tract infection. Small filling defect at the confluence of the left and middle hepatic veins which extends into the IVC suspicious for thrombus. No
definitive enhancement identified which would indicate tumor thrombus. Severe compression of the intrahepatic IVC.
[2024-12-21 15:35] VITALS: BP 119/59
[2024-12-21] MEDS: HEPARIN 25000 UNITS/250 ML IV (18:46)
[2024-12-21] MEDS: ROCEPHIN 1000 MG IV (20:32)
[2024-12-21] MEDS: STERILE WATER FOR INJECTION 10 ML IV (20:33)
[2024-12-21 21:00] LABS: APTT 92.6 Sec (23.4-35.0)
[2024-12-21 23:00] VITALS: BP 108/55
[2024-12-22 03:09] LABS: APTT 104.9 Sec (23.4-35.0)
[2024-12-22 03:25] LABS: Blood Urea Nitrogen 37 mg/dl (7-17); Calcium 7.7 mg/dl (8.4-10.2); Carbon Dioxide 12 mmol/L (22-30); Chloride 113 mmol/L (98-107); Estimated Creatinine Clearance 50 ml/min; Glucose 90 mg/dl (70-99); Potassium 4.0 mmol/L (3.5-5.1); Sodium 132 mmol/L (135-145); eGFR > 60.00
--- NOTE | 2024-12-22 03:45 | PTCARENOTE ---
Lab called in critical CO2. WARP TIER notified, ordered 50meg sodium bicarb. Added lactic acid draw.
[2024-12-22] MEDS: NSS 1000 IV (03:48)
[2024-12-22] MEDS: SODIUM BICARBONATE 50 MEQ IV (04:22)
[2024-12-22 06:00] VITALS: BMI 33.0
[2024-12-22 06:34] LABS: Venous Blood Gas B.E. -3.9 mmol/L (-4 to +4); Venous Blood Gas O2 Sat % 100.0 %
[2024-12-22 06:37] LABS: Hematocrit 32.3 % (37.0-47.0); Hemoglobin 11.5 g/dL (12.0-16.0); Mean Corp Hgb Conc. 35.6 g/dL (33.0-37.0); Mean Corpuscular Volume 90.7 fL (81.0-99.0); Nucleated Red Blood Cells % 0 %; Platelet Count 157 10^3/uL (130-400); Red Cell Dist. Width 18.5 % (11.5-14.5)
--- NOTE | 2024-12-22 07:06 | W.PN.UPDATE ---
Update Note
Progress Note Update
-Carbon Dioxide 12 this am, Sodium bicarb IV push ordered.
-Lactic acid ordered and result is 2.
[2024-12-22 07:33] VITALS: BP 111/66
[2024-12-22] MEDS: SODIUM BICARBONATE 1300 MG PO ×3 (08:52→22:05)
--- NOTE | 2024-12-22 09:28 | W.PN.URO.CBU ---
Today's Communication / Plan
-
UROLOGICALLY STABLE BUT AT RISK WILL OBSERVE AND CONTIUE CURRENT ANTIBIOTICS AWAIT PATH
Assessment / Plan
-
pt with either ascending gas or emphysematous pyelo asx afebrile the family and pt awre aware of dilemma thatif pt has emphysematous pyerlo she may need eithe rperc tibes u scope anr mnel=[hrectomy and she is facing tx based on bx that will
cause further immno syppresin will tat with targeted iv abs andif satbe outpatien t xrays t see if gas gone other joseph irad to perc if possible
Diagnosis
-
Date of Service: December 22, 2024
-
Patient Diagnosis:
Post Op Day:
Patient Diagnosis:
RT STAGHORN CALUIS ASX AND AIR IN BLADDER AND RT KIDNEY ASX E COLI HOVER LIVER CANCER AWAIT BX POSSIBLE METASTATIC MELANOMMA BUT POSSIBLE PRIMARY LIVER YET GI MED BELIEVES NOT PRIMARY
Post Op Day:
Subjective
-
NO SXS ITOI VS EMPOHYSEMATOUS PYELONEPHRITIS
Objective
-
Vital Signs
Temp Pulse Resp BP Pulse Ox
97.5 F 73 16 111/66 98
12/22/24 07:33 12/22/24 07:33 12/22/24 07:33 12/22/24 07:33 12/22/24 07:33
Intake and Output
12/21/24 12/22/24 12/23/24
06:59 06:59 06:59
Intake Total 1300 / 1300 2392 / 2392
Balance 1300 / 1300 2392 / 2392
Intake:
Oral fluids 1200 / 1200 1180 / 1180
IV fluids (Total) 1100 / 1100
IV piggybacks 100 / 100 112 / 112
Other:
Number of approximated MODERATE 4 2
amounts of urine
Laboratory Results
12/22/24 06:24
Review of Systems
-
Abdomen/GI: Abdominal Pain, Nausea and Anorexia
Physical Exam
-
General - well developed, well nourished, no acute distress
Chest - clear bilaterally
Abdomen - soft, non-tender, positive bowel sounds, no CVAT, no incisional pain or distention
Genitalia - normal
Rectal - normal
Skin - warm & dry with no rash
Neuro - AOx3, no motor deficits
Extremities - no clubbing, no cyanosis, no edema
Incision - clean, dry
Dressing - clean, dry, intact
Care Review
Data Reviewed
Discussed with: Nursing and Family
--- NOTE | 2024-12-22 10:52 | W.PN.HOSP.TC ---
Today's Communication/Plan
-
monitor vitals
see plan
awaiting path
CM for AC cost
cw abx per ID
bx
repeat cmp today
cw sodium bicarb
Discussed with family
Assessment / Plan
Assessment / Plan
General: Well Developed, Well Nourished and No Apparent Distress
HEENT: NormoCephalic, Moist mucous membranes and Atraumatic
Respiratory: Clear
Cardiac: S1/S2 and Regular Rhythm; No Murmur or Rub
GI: Soft, Non Tender, Normal Bowel Sounds and Distended
Skin: Rash and Other (Bilateral lower extremities wound with bandage)
Neuro: AO x 3 and Nonfocal/grossly intact
Psych: Calm
Jaundice, suspect obstructive
# Concern for hepatic metastatic disease
- WBCs 15.7, AST 274, ALT 88, ALK 193, lipase 330 Tbili 8.3
- Hep panel negative
- CT abdomen pelvis Markedly enlarged liver containing numerous enhancing lesions of varying size suspicious for hepatic metastatic disease. There is a large central lesion measuring up to 12 cm with mild mass effect on the central portal veins. A
primary liver cancer is also a diagnostic consideration. 17 mm staghorn calculus within the upper pole of the RIGHT kidney. Small amount of gas within the adjacent calyces as well as small amount of gas seen within the decompressed bladder, however
no significant inflammatory changes seen within the right renal pelvis or along the ureter. Findings may represent infected stone or ascending urinary tract infection.Small amount of free fluid within the pelvis.
Discussed with radiology, added addendum as there is suspicion of filling defect at the confluence of the left and middle hepatic veins with extension into the IVC suspicious for thrombus. There is also severe compression of intrahepatic IVC.
Status post IR guided liver biopsy. Follow-up pathology. Oncology following.
Continue with IV heparin; rehabilitation case coordinator for cost of DOAC
History of ocular melanoma status post resection 3 years ago. This can likely metastasized to liver. Will await biopsy
Initially there was concern of obstructive jaundice however reviewed with GI and no need for MRI in GI think this is likely secondary to metastatic liver. Will continue to monitor
CT chest negative for metastatic disease. Ascending aorta is dilated, measuring 4.1 cm. She has trace amount of ascites on CT scan. If her swelling do not improve then consider abdominal ultrasound and para
Acute metabolic acidosis
Suspect could be likely secondary to normal saline
Stop further IVF
Repeat labs later today, sodium bicarb. If bicarb does not improve then will start on bicarb drip
# Right kidney calculus
CT with staghorn calculi, urology follow-up
Spoke with Dr. Harrison, no surgery planned in short-term. Urology wants to follow-up outpatient for repeat imaging.
Continue with ceftriaxone
Follow urine culture, Kluyvera ascorbata UTI. ID recommended 2-week treatment
blood cx
# Hyponatremia/acute kidney injury likely from dehydration
- Sodium 132, CO2 19, creatinine 1.6 on admission
Creatinine 0.9 today, monitor
#b/l LE redness/swelling likely component of liver disease
-ctm
Continue ceftriaxone
Venous ultrasound negative for DVT
-wound care consulted.
# Melanoma of the eye
- History of resection with right prosthetic eye
# DVT prophylaxis
- IV heparin
# CODE STATUS
- Full code
I spent a total of 52 minutes with the patient or on the floor. More than 50% of this time involved counseling and coordination of care.
Anticipated Discharge: Within 24 hours
Subjective/Interval History
-
Date of Service: December 22, 2024
denies pain
Objective Data
-
Labs:
Laboratory Results
12/22/24 12/22/24 12/22/24
02:47 06:24 11:00
WBC 12.3 H
Hgb 11.5 L
Hct 32.3 L
Plt Count 157
APTT 104.9 H
Sodium 132 L Cancelled
Potassium 4.0
Chloride 113 H
Carbon Dioxide 12 L*
BUN 37 H
Creatinine 0.9
Glucose 90
Calcium 7.7 L
Total Bilirubin Cancelled
AST Cancelled
ALT Cancelled
Alkaline Phosphatase Cancelled
12/22/24 12/22/24 12/22/24
11:00 11:00 11:00
WBC
Hgb
Hct
Plt Count
APTT
Sodium Pending
Potassium Cancelled Pending
Chloride Cancelled Pending
Carbon Dioxide Cancelled
BUN
Creatinine
Glucose
Calcium
Total Bilirubin
AST
ALT
Alkaline Phosphatase
12/22/24 12/22/24 12/22/24
11:00 11:00 11:00
WBC
Hgb
Hct
Plt Count
APTT
Sodium
Potassium
Chloride
Carbon Dioxide Pending
BUN Cancelled Pending
Creatinine Cancelled Pending
Glucose Cancelled
Calcium
Total Bilirubin
AST
ALT
Alkaline Phosphatase
12/22/24 12/22/24
11:00 11:00
WBC
Hgb
Hct
Plt Count
APTT
Sodium
Potassium
Chloride
Carbon Dioxide
BUN
Creatinine
Glucose Pending
Calcium Cancelled Pending
Total Bilirubin Pending
AST Pending
ALT Pending
Alkaline Phosphatase Pending
Vital Signs:
Vital Signs
Temp Pulse Resp BP Pulse Ox
97.5 F 73 16 111/66 98
12/22/24 07:33 12/22/24 07:33 12/22/24 07:33 12/22/24 07:33 12/22/24 07:33
I&O
12/21/24 12/22/24 12/23/24
06:59 06:59 06:59
Intake Total 1300 / 1300 2392 / 2392
Balance 1300 / 1300 2392 / 2392
[2024-12-22 11:29] VITALS: BP 127/70; PULSE 89; O2SAT 97
--- NOTE | 2024-12-22 12:11 | W.PN.ONC ---
Today's Communication / Plan
-
CT chest - no metastatic disease
check MRI brain
await path from liver biopsy
cont supportive care
Impression
Impression
liver lesions
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
hyponatremia
JERROD
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
increased LFTs - hyperbilirubinemia
LE edema/ cellulitis
UTI
Plan
Plan
1. Liver lesions - unclear etiology
-w/ h/o right eye occular melanoma - concern for systemic metastatic disease
-s/p IR liver biopsy 12/20 - await pathology
-CT chest non-contrast - no metastasis
-check MRI brain r/o mets
-outpt PET/CT
-additional discussion will be had as oupt about potential treatment options once pathology available for review
2. Hepatic vein thrombus - filling defect at the confluence of the left and middle hepatic veins which extends into the IVC
-heparin gtt - once biopsy completed
-transition to DOAC as outpt
3. increased LFTs/ transamitis/ elevated bili
-?due to metastatic disease
-GI following
4. LE edema/ cellulitis - UTI
-ID following - antibiotics
Will continue to follow with you.
Subjective/Objective
Subjective/Objective
feels better, no fevers, some abdominal distention
Vital Signs:
Vital Signs
Temp Pulse Resp BP Pulse Ox
97.5 F 73 16 111/66 98
12/22/24 07:33 12/22/24 07:33 12/22/24 07:33 12/22/24 07:33 12/22/24 07:33
Lab Results:
Laboratory Data
WBC 12.3 10^3/uL (4.8-10.8) H 12/22/24 06:24
Hgb 11.5 g/dL (12.0-16.0) L 12/22/24 06:24
Plt Count 157 10^3/uL (130-400) 12/22/24 06:24
PT 19.6 Sec (11.4-14.6) H 12/20/24 10:56
INR 1.63 12/20/24 10:56
APTT 104.9 Sec (23.4-35.0) H 12/22/24 02:47
eGFR Cancelled 12/22/24 11:00
Gen: awake in NAD
CV: RRR
Pulm: CTAb
Abd: distention present
Ext: edema+
Neuro: A&Ox3
Orders
Orders
Orders From Last 24 Hours
12/21/24 13:27
CT Chest W/o Iv Contrast Routine
[2024-12-22 14:11] LABS: ALT (SGPT) 82 U/L (0-35); AST (SGOT) 207 U/L (14-36); Albumin 2.9 g/dl (3.5-5.0); Alkaline Phosphatase 192 U/L (38-126); Blood Urea Nitrogen 32 mg/dl (7-17); Calcium 8.3 mg/dl (8.4-10.2); Carbon Dioxide 18 mmol/L (22-30); Chloride 109 mmol/L (98-107); Estimated Creatinine Clearance 57 ml/min; Glucose 89 mg/dl (70-99); Potassium 4.0 mmol/L (3.5-5.1); Sodium 133 mmol/L (135-145); Total Protein 5.7 g/dl (6.3-8.2); eGFR > 60.00
--- NOTE | 2024-12-22 14:34 | PTCARENOTE ---
Patient OOB to bathroom with steady gait and supervision due to IV pole. Patient tolerating 50% of breakfast. Patient anxious and tearful at times. Patient prefers her diagnosis not be discussed in front of her. Patient's daughter in law at bedside,
all of her questions and concerns were addressed throughout the day.
[2024-12-22 15:52] VITALS: BP 120/68
[2024-12-22] MEDS: HEPARIN 25000 UNITS/250 ML IV (18:30)
[2024-12-22] MEDS: ROCEPHIN 1000 MG IV (20:07)
[2024-12-22] MEDS: STERILE WATER FOR INJECTION 10 ML IV (20:07)
[2024-12-22 23:00] VITALS: BP 112/53
[2024-12-23 06:00] VITALS: BMI 32.9
[2024-12-23 06:30] LABS: Hematocrit 33.0 % (37.0-47.0); Hemoglobin 11.4 g/dL (12.0-16.0); Mean Corp Hgb Conc. 34.5 g/dL (33.0-37.0); Mean Corpuscular Volume 92.7 fL (81.0-99.0); Nucleated Red Blood Cells % 0 %; Platelet Count 182 10^3/uL (130-400); Red Cell Dist. Width 19.5 % (11.5-14.5)
[2024-12-23 06:33] LABS: APTT 108.6 Sec (23.4-35.0)
[2024-12-23 07:13] LABS: ALT (SGPT) 73 U/L (0-35); AST (SGOT) 186 U/L (14-36); Albumin 2.5 g/dl (3.5-5.0); Alkaline Phosphatase 183 U/L (38-126); Blood Urea Nitrogen 27 mg/dl (7-17); Calcium 8.0 mg/dl (8.4-10.2); Carbon Dioxide 25 mmol/L (22-30); Chloride 107 mmol/L (98-107); Estimated Creatinine Clearance 51 ml/min; Glucose 116 mg/dl (70-99); Potassium 3.9 mmol/L (3.5-5.1); Sodium 136 mmol/L (135-145); Total Protein 5.1 g/dl (6.3-8.2); eGFR > 60.00
[2024-12-23 07:20] VITALS: BP 132/71
--- NOTE | 2024-12-23 07:36 | W.PN.ONC2 ---
Today's Communication / Plan
-
follow for pathology
OP follow up will be arranged upon discharge
Impression
Impression
liver lesions
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
hyponatremia
JERROD
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
increased LFTs - hyperbilirubinemia
LE edema/ cellulitis
UTI
Plan
Plan
1. Liver lesions - unclear etiology
-w/ h/o right eye occular melanoma - concern for systemic metastatic disease
-s/p IR liver biopsy 12/20 - await pathology
-CT chest non-contrast - no metastasis
-check MRI brain r/o mets
-outpt PET/CT
-additional discussion will be had as oupt about potential treatment options once pathology available for review
2. Hepatic vein thrombus - filling defect at the confluence of the left and middle hepatic veins which extends into the IVC
-heparin gtt - once biopsy completed
-transition to DOAC as outpt
3. increased LFTs/ transamitis/ elevated bili
-?due to metastatic disease
-GI following
4. LE edema/ cellulitis - UTI
-ID following - antibiotics
Will continue to follow with you.
Subjective/Objective
Subjective
no new complaints
afebrile, no hypoxia
denies pain
denies bleeding
Vital Signs:
Vital Signs
Temp Pulse Resp BP Pulse Ox
97.9 F 77 20 132/71 96
12/23/24 07:20 12/23/24 07:20 12/23/24 07:20 12/23/24 07:20 12/23/24 07:20
Lab Results:
Laboratory Data
WBC 11.4 10^3/uL (4.8-10.8) H 12/23/24 06:02
Hgb 11.4 g/dL (12.0-16.0) L 12/23/24 06:02
Plt Count 182 10^3/uL (130-400) 12/23/24 06:02
PT 19.6 Sec (11.4-14.6) H 12/20/24 10:56
INR 1.63 12/20/24 10:56
APTT 108.6 Sec (23.4-35.0) H 12/23/24 06:02
eGFR > 60.00 12/23/24 06:02
Physical Exam
HEENT: Moist Mucous Membranes; No Jaundice
Pulmonary: Other (unlabored)
GI: Soft
Extremities: Pulses Present
[2024-12-23 11:25] VITALS: BP 108/62
[2024-12-23] MEDS: XANAX 0.25 MG PO (13:08)
--- NOTE | 2024-12-23 13:16 | W.PN.HOSP.TC ---
Today's Communication/Plan
-
MRI brain
Echo
cont ceftriaxone
Assessment / Plan
Assessment / Plan
74yo F with PMHx of ocular melanoma s/p R eye enoculation, now with acrillic prosthesis, came with concerns for poor appetitie and b/l LE swelling. CT abd showed enlarged liver with multiple lesions, suspiscious for liver metastasis, large central
lesion 12cm with mild mass effect on central portal veins and Small filling defect at the confluence of the left and middle hepatic veins which extends into the IVC suspicious for thrombus. Also incidental finding of 17 mm staghorn calculus within
the upper pole of the RIGHT kidney
A/P:
#Jaundice with elevated bilirubin and transaminases
#Numerous liver lesions
#large central lesion measuring up to 12 cm with mild mass effect on the central portal veins
As per GI: 2/2 liver lesion rather then obstructive jaundice
Bilirubin stable - cont to follow, recommend weekly when outpatient
s/p liver biopsy - pending path
US abd on 12/23/24 - small amount of ascites, discussing with IAD, but amount not sufficient to do paracentesis
CT chest without metastatic disease
Oncology consult: outpatient PET, inpatient MRI brain
#17 mm staghorn calculus within the upper pole of the RIGHT kidney
#UTI
Ucx: Kluyvera ascorbata
As per ID: Continue ceftriaxone, At time of discharge, transition to cipro 500mg po bid through 01/01/25
Urology followed - outpatient follow up
#Uterine fibroid
calcified
no direct recommendations, advised to discuss with PLUG MAKING OPERATOR as outpatient
#Portal vein thrombosis
Heparin drip aating for CM to verify laws for [place]
#B/L LE edema
2/2 venous congestion due to portal HTN with mass effect on IVC
with elevated proBNP - reasonable to do Echo
DVT px - on hep drip
Full code
I have spent at least 57min reviewing chart, test results, communication with consultants, family bedside and providing direct patient care
Anticipated Discharge: 24 - 48 hours
Subjective/Interval History
-
Date of Service: December 23, 2024
Objective Data
-
Labs:
Laboratory Results
12/23/24
06:02
WBC 11.4 H
Hgb 11.4 L
Hct 33.0 L
Plt Count 182
APTT 108.6 H
Sodium 136
Potassium 3.9
Chloride 107
Carbon Dioxide 25
BUN 27 H
Creatinine 0.9
Glucose 116 H
Calcium 8.0 L
Total Bilirubin 6.5 H
AST 186 H
ALT 73 H
Alkaline Phosphatase 183 H
Vital Signs:
Vital Signs
Temp Pulse Resp BP Pulse Ox
97.5 F 83 16 108/62 94
12/23/24 11:25 12/23/24 11:25 12/23/24 11:25 12/23/24 11:25 12/23/24 12:44
I&O
12/22/24 12/23/24 12/24/24
06:59 06:59 06:59
Intake Total 2392 / 2392 720 / 720
Balance 2392 / 2392 720 / 720
Review of Systems
-
History Source: Patient
All other systems: Reviewed and negative
Physical Exam
-
General: Comfortable
HEENT: Normocephalic
Respiratory: Clear to Auscultation
GI: Soft, Nontender and Nondistended
Musculoskeletal: No Clubbing, No Cyanosis and No Edema
Neuro: Awake, Alert, Oriented and AO x 3
Psych: Calm
--- NOTE | 2024-12-23 13:29 | W.PN.ID1 ---
Date of Service
Date of Service: December 23, 2024
Today's Communication
Transition ceftriaxone to cipro 500mg po bid through 01/01/25.
Check QTc
Assessment / Plan
# Kluyvera ascorbata UTI
# Leukocytosis improving
-Right renal staghorn calculus with gas (from bacteria)
-Pt asymptomatic
- Transition ceftriaxone to cipro 500mg po bid through 01/01/25.
Check QTc
# BLE edema, weepage, wounds improving
- Edema due to poor venous return from liver mass compression of IVC
- No cellulitis
- Continue local wound care, compression when able, and leg elevation.
# Painless jaundice
# New finding of multiple liver mets s/p liver biopsy 12/20
# Portal vein thrombus
# hx R ocular melanoma s/p enucleation 2022. Pt did not pursue further work-up/staging at the time.
Chief Complaint
-: UTI
Subjective / Review of Systems
No complaints.
Vital Signs / Physical Exam
Vital Signs
Vital Signs
Temp Pulse Resp BP Pulse Ox
97.5 F 83 16 108/62 94
12/23/24 11:25 12/23/24 11:25 12/23/24 11:25 12/23/24 11:25 12/23/24 12:44
Physical Exam
Constitutional: No Acute Distress
Pulmonary: Clear
Genito-Urinary: Negative CVA Tenderness
Wound: Other (BLE dressings dry)
Neurological: AO x 3
Objective Data
Lab Data
Lab Results
12/23/24 06:02
12/23/24 06:02
PT 19.6 Sec (11.4-14.6) H 12/20/24 10:56
INR 1.63 12/20/24 10:56
APTT 108.6 Sec (23.4-35.0) H 12/23/24 06:02
Estimated Creat Clear 51 ml/min 12/23/24 06:02
Lactic Acid 2.3 mmol/L (0.7-2.0) H 12/23/24 06:02
Total Bilirubin 6.5 mg/dl (0.2-1.3) H 12/23/24 06:02
AST 186 U/L (14-36) H 12/23/24 06:02
ALT 73 U/L (0-35) H 12/23/24 06:02
Alkaline Phosphatase 183 U/L (38-126) H 12/23/24 06:02
Most recent labs reviewed.
Micro Results:
12/22/24 12:50 Blood Culture - Preliminary
Blood/Venous No Growth in 24 hours- Final report to follow
12/22/24 13:34 Blood Culture - Pending
Blood/Venous
12/19/24 16:13 Urine Culture - Final
Urine Kluyvera ascorbata
12/19/24 21:47 MRSA Screen - Final
Nose No Methicillin Resistant Staphylococcus aureus isolated.
12/19/24 CT a/p: Markedly enlarged liver containing numerous enhancing lesions of varying size suspicious for hepatic metastatic disease. There is a large central lesion measuring up to 12 cm with mild mass effect on the central portal veins. A
primary liver cancer is also a diagnostic consideration.
17 mm staghorn calculus within the upper pole of the RIGHT kidney. Small amount of gas within the adjacent calyces as well as small amount of gas seen within the decompressed bladder, however no significant inflammatory changes seen within the right
renal pelvis or along the ureter. Findings may represent infected stone or ascending urinary tract infection. Small filling defect at the confluence of the left and middle hepatic veins which extends into the IVC suspicious for thrombus. No
definitive enhancement identified which would indicate tumor thrombus. Severe compression of the intrahepatic IVC.
--- NOTE | 2024-12-23 13:37 | VNURNOTE ---
Fox Raiser met with patient, spouse, son and dgt-in-law to discuss [facility] nurse/therapy, visits, schedule and homebound status. Patient is agreeable and understands that visits at home will be 2-3 x per week to assess and teach medical
management.
[facility] 1-2 days after discharge from .
[facility] referral completed in [facility].
[2024-12-23 13:53] VITALS: BMI 32.9
--- NOTE | 2024-12-23 14:49 | W.PN.URO.CBU ---
Today's Communication / Plan
-
if stable schedue kub ad urne cx as outpatient
Assessment / Plan
-
pt with either ascending gas or emphysematous pyelo asx afebrile the family and pt awre aware of dilemma thatif pt has emphysematous pyerlo she may need eithe rperc tibes u scope anr mnel=[hrectomy and she is facing tx based on bx that will
cause further immno syppresin will tat with targeted iv abs andif satbe outpatien t xrays t see if gas gone other joseph irad to perc if possible
Diagnosis
-
Date of Service: December 23, 2024
-
Patient Diagnosis:
Post Op Day:
Patient Diagnosis:
Post Op Day:
Patient Diagnosis:
RT STAGHORN CALUIS ASX AND AIR IN BLADDER AND RT KIDNEY ASX E COLI HOVER LIVER CANCER AWAIT BX POSSIBLE METASTATIC MELANOMMA BUT POSSIBLE PRIMARY LIVER YET GI MED BELIEVES NOT PRIMARY
Post Op Day:
Subjective
-
no colic no uti sxs
Objective
-
Vital Signs
Temp Pulse Resp BP Pulse Ox
97.5 F 83 16 108/62 94
12/23/24 11:25 12/23/24 11:25 12/23/24 11:25 12/23/24 11:25 12/23/24 12:44
Intake and Output
12/22/24 12/23/24 12/24/24
06:59 06:59 06:59
Intake Total 2392 / 2392 720 / 720
Balance 2392 / 2392 720 / 720
Intake:
Oral fluids 1180 / 1180 720 / 720
IV fluids (Total) 1100 / 1100
IV piggybacks 112 / 112
Other:
Number of approximated MODERATE 2 4
amounts of urine
Laboratory Results
08/04/25 06:02
12/23/24 06:02
Review of Systems
-
: No Symptoms
Physical Exam
-
General - well developed, well nourished, no acute distress
Chest - clear bilaterally
Abdomen - soft, non-tender, positive bowel sounds, no CVAT, no incisional pain or distention
Genitalia - normal
Rectal - normal
Skin - warm & dry with no rash
Neuro - AOx3, no motor deficits
Extremities - no clubbing, no cyanosis, no edema
Incision - clean, dry
Dressing - clean, dry, intact
Counseling
-
plan perm hospitalist
Care Review
Data Reviewed
Discussed with: Nursing and Family
[2024-12-23] MEDS: HEPARIN 25000 UNITS/250 ML IV (15:05)
--- NOTE | 2024-12-23 15:26 | CM ---
Addendum entered by Maria Antonia Waldron 12/23/24 16:32:
Eliquis 5mg po BID $617.49/30 day supply
Xeralto 15mg BID x 21 days $213.05, Xeralto 20mg daily $152.28/30 day supply
tt hospitalist
Cost given to daughter in law/son
Coupons given
Original Note:
Patient seen at bedside with daughter in law [place]
CM consult completed for VN
options reviewed & prefers VN - notified [facility] liaison, referral placed in [facility]
CM consult consult completed for medication pricing
Eliquis 5mg BID
Xeralto 15mg BID x 21 days then 20mg daily
called [facility] and spoke with pharmacist Anjel-checking laws, will call back
PLAN: Home with [facility] when stable
to transport
[2024-12-23 15:47] VITALS: BP 101/57
[2024-12-23] MEDS: ANCEF 10 IV (20:43)
[2024-12-23 23:00] VITALS: BP 90/46
[2024-12-24] MEDS: ANCEF 10 IV ×2 (04:05→11:50)
[2024-12-24 06:00] VITALS: BMI 33.2
[2024-12-24 06:20] LABS: Hematocrit 32.2 % (37.0-47.0); Hemoglobin 11.1 g/dL (12.0-16.0); Mean Corp Hgb Conc. 34.5 g/dL (33.0-37.0); Mean Corpuscular Volume 92.3 fL (81.0-99.0); Nucleated Red Blood Cells % 0 %; Platelet Count 186 10^3/uL (130-400); Red Cell Dist. Width 19.9 % (11.5-14.5)
[2024-12-24 06:48] LABS: APTT 158.2 Sec (23.4-35.0)
[2024-12-24 07:17] LABS: ALT (SGPT) 57 U/L (0-35); AST (SGOT) 153 U/L (14-36); Albumin 2.4 g/dl (3.5-5.0); Alkaline Phosphatase 169 U/L (38-126); Blood Urea Nitrogen 25 mg/dl (7-17); Calcium 8.0 mg/dl (8.4-10.2); Carbon Dioxide 21 mmol/L (22-30); Chloride 109 mmol/L (98-107); Estimated Creatinine Clearance 51 ml/min; Glucose 83 mg/dl (70-99); Potassium 3.9 mmol/L (3.5-5.1); Sodium 134 mmol/L (135-145); Total Protein 4.9 g/dl (6.3-8.2); eGFR > 60.00
[2024-12-24 07:40] VITALS: BP 123/66
--- NOTE | 2024-12-24 09:33 | W.PN.ONC2 ---
Today's Communication / Plan
-
Dr. Jiménez had a family meeting with pt, , son, and daughter in law at bedside to review pathology and recommendations for tertiary center medical oncology practice that specializes in uveal melanoma. Pt daughter in law is working on
getting an appointment with Dr. An at [facility] or specialist at [facility].
Impression
Impression
liver lesions -liver biopsy diagnostic for metastatic melanoma
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
hyponatremia
JERROD
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
increased LFTs - hyperbilirubinemia
LE edema/ cellulitis
UTI
Plan
Plan
1. metastatic melanoma via liver biopsy 12/20
-w/ h/o right eye occular melanoma - concern for systemic metastatic disease
-CT chest non-contrast - no metastasis
-MRI brain 0.6cm rounded enhancing focus left frontal lobe with diff dx metastatic melanoma vs saccular aneurysm though less likely
-elevated LFTs
-outpt PET/CT
2. Hepatic vein thrombus - filling defect at the confluence of the left and middle hepatic veins which extends into the IVC
-heparin gtt - once biopsy completed
-transition to DOAC as outpt
4. LE edema/ cellulitis - UTI
-ID following - antibiotics
Will continue to follow with you.
Subjective/Objective
Subjective
no new complaints
afebrile, no hypoxia
Vital Signs:
Vital Signs
Temp Pulse Resp BP Pulse Ox
96.6 F L 79 14 123/66 95
12/24/24 07:40 12/24/24 07:40 12/24/24 07:40 12/24/24 07:40 12/24/24 07:40
Lab Results:
Laboratory Data
WBC 13.6 10^3/uL (4.8-10.8) H 12/24/24 06:13
Hgb 11.1 g/dL (12.0-16.0) L 12/24/24 06:13
Plt Count 186 10^3/uL (130-400) 12/24/24 06:13
PT 19.6 Sec (11.4-14.6) H 12/20/24 10:56
INR 1.63 12/20/24 10:56
APTT 158.2 Sec (23.4-35.0) H* 12/24/24 06:13
eGFR > 60.00 12/24/24 06:13
Physical Exam
HEENT: Moist Mucous Membranes; No Jaundice
Pulmonary: Other (unlabored)
GI: Soft
Extremities: Pulses Present
--- NOTE | 2024-12-24 10:32 | W.PN.ID1 ---
Date of Service
Date of Service: December 24, 2024
Today's Communication
Transition IV abx to cefuroxime 500mg po bid through 01/12/25.
Assessment / Plan
# Kluyvera ascorbata UTI
# Leukocytosis improving
-Right renal staghorn calculus with gas (from bacteria)
-Pt asymptomatic
- Organism sensitive to cephalosporins including first generation.
- Transition IV abx to cefuroxime 500mg po bid through 01/12/25.
- Follow-up with Urology
# BLE edema, weepage, wounds improving
- Edema due to poor venous return from liver mass compression of IVC
- No cellulitis
- Continue local wound care, compression when able, and leg elevation.
# Painless jaundice
# New finding of multiple liver mets s/p liver biopsy 12/20
# Portal vein thrombus
# hx R ocular melanoma s/p enucleation 2022. Pt did not pursue further work-up/staging at the time.
- liver bx: metastatic melanoma
Chief Complaint
-: UTI
Subjective / Review of Systems
No new complaints.
Vital Signs / Physical Exam
Vital Signs
Vital Signs
Temp Pulse Resp BP Pulse Ox
96.6 F L 79 14 123/66 95
12/24/24 07:40 12/24/24 07:40 12/24/24 07:40 12/24/24 07:40 12/24/24 07:40
Physical Exam
Constitutional: No Acute Distress and Comfortable
Extremities: Edema
Neurological: AO x 3
Objective Data
Lab Data
Lab Results
12/24/24 06:13
12/24/24 06:13
PT 19.6 Sec (11.4-14.6) H 12/20/24 10:56
INR 1.63 12/20/24 10:56
APTT 158.2 Sec (23.4-35.0) H* 12/24/24 06:13
Estimated Creat Clear 51 ml/min 12/24/24 06:13
Lactic Acid 2.3 mmol/L (0.7-2.0) H 12/23/24 06:02
Total Bilirubin 6.7 mg/dl (0.2-1.3) H 12/24/24 06:13
AST 153 U/L (14-36) H 12/24/24 06:13
ALT 57 U/L (0-35) H 12/24/24 06:13
Alkaline Phosphatase 169 U/L (38-126) H 12/24/24 06:13
Most recent labs reviewed.
Micro Results:
12/22/24 13:34 Blood Culture - Preliminary
Blood/Venous No Growth in 24 hours- Final report to follow
12/22/24 12:50 Blood Culture - Preliminary
Blood/Venous No Growth in 24 hours- Final report to follow
12/19/24 16:13 Urine Culture - Final
Urine Kluyvera ascorbata
12/19/24 21:47 MRSA Screen - Final
Nose No Methicillin Resistant Staphylococcus aureus isolated.
12/19/24 CT a/p: Markedly enlarged liver containing numerous enhancing lesions of varying size suspicious for hepatic metastatic disease. There is a large central lesion measuring up to 12 cm with mild mass effect on the central portal veins. A
primary liver cancer is also a diagnostic consideration.
17 mm staghorn calculus within the upper pole of the RIGHT kidney. Small amount of gas within the adjacent calyces as well as small amount of gas seen within the decompressed bladder, however no significant inflammatory changes seen within the right
renal pelvis or along the ureter. Findings may represent infected stone or ascending urinary tract infection. Small filling defect at the confluence of the left and middle hepatic veins which extends into the IVC suspicious for thrombus. No
definitive enhancement identified which would indicate tumor thrombus. Severe compression of the intrahepatic IVC.
Care Review
Plan reviewed with: Physician (Dr. Castillo)
[2024-12-24] MEDS: ELIQUIS 10 MG PO (11:00)
--- NOTE | 2024-12-24 12:32 | W.PN.HOSP.TC ---
Today's Communication/Plan
-
DC
Assessment / Plan
Assessment / Plan
74yo F with PMHx of ocular melanoma s/p R eye enoculation, now with acrillic prosthesis, came with concerns for poor appetite and b/l LE swelling. CT abd showed enlarged liver with multiple lesions, suspiscious for liver metastasis, large central
lesion 12cm with mild mass effect on central portal veins and Small filling defect at the confluence of the left and middle hepatic veins which extends into the IVC suspicious for thrombus. Also incidental finding of 17 mm staghorn calculus within
the upper pole of the RIGHT kidney. MRI brain showed 0.6cm metastasis, recommended for outpatient follow up. ID recommended cefuroxime due to QTc 491. Medically stable for d/c. Weekly BMP and LFT recommended with PCP for the next month.
A/P:
#Jaundice with elevated bilirubin and transaminases
#Numerous liver lesions
#large central lesion measuring up to 12 cm with mild mass effect on the central portal veins
As per GI: 2/2 liver lesion rather then obstructive jaundice
Bilirubin stable - cont to follow, recommend weekly when outpatient
s/p liver biopsy - melanoma
US abd on 12/23/24 - small amount of ascites, discussing with IAD, but amount not sufficient to do paracentesis
CT chest without metastatic disease
Oncology consult: outpatient PET, inpatient MRI brain showed 0.6 mass suspicious for metastasis, recommended evaluation in tertiary care center - family
#17 mm staghorn calculus within the upper pole of the RIGHT kidney
#UTI
Ucx: Kluyvera ascorbata
As per ID: Continue ceftriaxone, At time of discharge, transition to cefuroxime 500mg po bid through 01/12/25
Urology followed - outpatient follow up
#Uterine fibroid
calcified
no direct recommendations, advised to discuss with [employer] as outpatient
#Portal vein thrombosis
Heparin drip switched to Elqiuis as family prefer this medication and agreeable with copay costs
#B/L LE edema
2/2 venous congestion due to portal HTN with mass effect on IVC
with elevated proBNP - Echo: Normal biventricular size and systolic function without regional wall motion abnormality. Estimated LVEF 60-65%. No significant valve disease
DVT px - on Eliquis
Full code
I have spent at least 51min reviewing chart, test results, communication with consultants, family bedside and providing direct patient care
Anticipated Discharge: Today
Subjective/Interval History
-
Date of Service: December 24, 2024
Objective Data
-
Labs:
Laboratory Results
12/24/24 12/24/24
06:13 12:54
WBC 13.6 H
Hgb 11.1 L
Hct 32.2 L
Plt Count 186
APTT 158.2 H* Cancelled
Sodium 134 L
Potassium 3.9
Chloride 109 H
Carbon Dioxide 21 L
BUN 25 H
Creatinine 0.9
Glucose 83
Calcium 8.0 L
Total Bilirubin 6.7 H
AST 153 H
ALT 57 H
Alkaline Phosphatase 169 H
Vital Signs:
Vital Signs
Temp Pulse Resp BP Pulse Ox
96.6 F L 79 14 123/66 95
12/24/24 07:40 12/24/24 07:40 12/24/24 07:40 12/24/24 07:40 12/24/24 07:40
I&O
12/23/24 12/24/24 12/25/24
06:59 06:59 06:59
Intake Total 720 / 720 240 / 240
Balance 720 / 720 240 / 240
Review of Systems
-
History Source: Patient
All other systems: Reviewed and negative
Physical Exam
-
General: No Apparent Distress
HEENT: Normocephalic
Neuro: Awake, Alert, Oriented and AO x 3
Psych: Calm
--- NOTE | 2024-12-24 12:39 | CM ---
Addendum entered by Maria Antonia Waldron 12/24/24 15:04:
Per daughter in law [facility] will not have Eliquis until tomorrow
spoke with Ezekiel pharmacist at [facility] [phone]
stated they have Eliquis - spoke with hospitalist
family agreeable & will lemon picker at [facility], [address], [place]
IMM n/a
discharge today
PLAN: Home, with [facility]
family to transport
Original Note:
Patient chart reviewed
met with [id number]
referral in [facility] for [facility]-accepted
PLAN: Home with [facility] when stable
--- NOTE | 2024-12-24 13:41 | W.PN.UPDATE ---
Update Note
Progress Note Update
outpatient Eliquis not available until 12/25/24 as per [facility] pharmacy. CM working on alternatives, meanwhile - hold D/C
--- NOTE | 2024-12-24 14:10 | W.PN.URO.CBU ---
Today's Communication / Plan
-
home follow up uroolgy sept sooner if sxs
Assessment / Plan
-
pt with either ascending gas or emphysematous pyelo asx afebrile the family and pt awre aware of dilemma thatif pt has emphysematous pyerlo she may need eithe rperc tibes u scope anr mnel=[hrectomy and she is facing tx based on bx that will
cause further immno syppresin will tat with targeted iv abs andif satbe outpatien t xrays t see if gas gone other joseph irad to perc if possible
Diagnosis
-
Date of Service: December 24, 2024
-
Patient Diagnosis:
Post Op Day:
Patient Diagnosis:
Post Op Day:
Patient Diagnosis:
Post Op Day:
Patient Diagnosis:
RT STAGHORN CALUIS ASX AND AIR IN BLADDER AND RT KIDNEY ASX E COLI HOVER LIVER CANCER AWAIT BX POSSIBLE METASTATIC MELANOMMA BUT POSSIBLE PRIMARY LIVER YET GI MED BELIEVES NOT PRIMARY
Post Op Day:
Subjective
-
no gu comp-laints
Objective
-
Vital Signs
Temp Pulse Resp BP Pulse Ox
96.6 F L 79 14 123/66 95
12/24/24 07:40 12/24/24 07:40 12/24/24 07:40 12/24/24 07:40 12/24/24 07:40
Intake and Output
12/23/24 12/24/24 12/25/24
06:59 06:59 06:59
Intake Total 720 / 720 240 / 240
Balance 720 / 720 240 / 240
Intake:
Oral fluids 720 / 720 240 / 240
Other:
Number of approximated MODERATE 4 2
amounts of urine
Laboratory Results
12/24/24 06:13
12/24/24 06:13
Review of Systems
-
: No Symptoms
Physical Exam
-
General - well developed, well nourished, no acute distress
Chest - clear bilaterally
Abdomen - soft, non-tender, positive bowel sounds, no CVAT, no incisional pain or distention
Genitalia - normal
Rectal - normal
Skin - warm & dry with no rash
Neuro - AOx3, no motor deficits
Extremities - no clubbing, no cyanosis, no edema
Incision - clean, dry
Dressing - clean, dry, intact
[2024-12-24 14:39] VITALS: BP 142/75
--- NOTE | 2024-12-24 15:02 | W.DCSUMMARY ---
Discharge Summary
Discharge Data
Date of Admission: 12/19/24
Date of Discharge: 12/24/24
-
Pending Results: No
Hospital Course
74yo F with PMHx of ocular melanoma s/p R eye ejaculation, now with acrylic prosthesis, came with concerns for poor appetite and b/l LE swelling. CT abd showed enlarged liver with multiple lesions, suspiscious for liver metastasis, large central
lesion 12cm with mild mass effect on central portal veins and Small filling defect at the confluence of the left and middle hepatic veins which extends into the IVC suspicious for thrombus. Also incidental finding of 17 mm staghorn calculus within
the upper pole of the RIGHT kidney with UTI and emphysematous or ascending cystitis. Urology planning for outpatient follow up for eventual possible surgery. MRI brain showed 0.6cm metastasis, recommended for outpatient follow up. ID recommended
cefuroxime due to QTc 491. Medically stable for d/c. Weekly BMP and LFT recommended with PCP for the next month. Family agreeable with [facility] laws and mediation sent to pharmacy that has it in stock on the day of d/c.
I have spent at least 51min reviewing chart, test results, communication with consultants, family bedside and providing direct patient care
Patient was managed for:
#Jaundice with elevated bilirubin and transaminases
#Numerous liver lesions 2/2 metastatic melanoma
#0.6cm brain lesion
#large central lesion measuring up to 12 cm with mild mass effect on the central portal
#17 mm staghorn calculus within the upper pole of the RIGHT kidney
#UTI
#Uterine fibroid
#Portal vein thrombosis
#B/L LE edema
Discharge Plan
-
Patient Disposition: Home (Routine Discharge)
Discharge Diagnosis/Procedures: metastatic melanoma
Diet: Low Cholesterol
Activity: As tolerated
Driving Restrictions: As prior to admission
Blood Work: CBC, BMP and LFT with family doctor weekly for at least 1 month
Others Tests: tranvaginal US for uterine fibroids with TRAVEL REGISTERED NURSE NICU
Activity Restrictions/Additional Instructions:
Wound Care Instructions Bilateral LE- Gently clean with normal saline. Apply thin layer of barrier ointment to surrounding skin as tolerated. Cover heavily draining areas with adaptic and alginate. Cover with ABD and wrap with michael. Change daily
and PRN for drainage.
Referrals:
Eron Gonzalez MD [Active, Urology]
Referral Note: call DR GONZALEZ [phone] CALLIF FFEVERE CHILLS OR SEVERE BACK PAIN WILL NEED URINE CULTUIRE 2- 3 WEEKS AFTER LAST ANTIBIOTOC AND KIDNEY X RAY BEFORE A SEPT VISIT GOOD LUCK!!
Juli Nayak DO [Active, Hematology / Oncology] - in less than 1 week
Referral Note: For PET scan
Yovani Gaffney MD [Family Provider, Internal Medicine]
Additional Discharge Medication Instructions: take Eliquis 10mg for 13 doses and switch to Eliquis 5mg at PM on 12/30/24
Prescriptions:
New
Eliquis DVT-PE Treat 30D Start 5 mg (74 tabs) tablets,dose pack
See Rx Instructions .ROUTE .COMPLEX Qty: 74 0RF
Rx Instructions:
orally per package directions
sennosides-docusate sodium 8.6-50 mg Tablet
1 tab PO BIDPRN PRN (Reason: constipation) Qty: 30 0RF
cefuroxime axetil 500 mg tablet
500 mg PO Q12H Qty: 39 0RF
Continued
acetaminophen [Tylenol] 325 mg Tablet
650 mg PO Q6HPRN PRN (Reason: MILD PAIN)
Discontinued
cephalexin 500 mg Capsule
500 mg PO Q6H
Rx Instructions:
FOR 10 DAYS STARTING 12/17/24
Discharge Orders:
Discharge Patient (As Directed); Ordered 12/24/24
Ordered By: Felix Castillo
Discharge Date and Time
Print Language: NIGERIAN
[2024-12-24 15:56] VITALS: BP 112/68
== END 2024-12-24 17:22 | DRG 435 ==
LOC: 3 WEST ACU 15:52
PROVIDERS: Emergency Medicine; Internal Medicine; Nurse Practitioner Family; Radiology Diagnostic Radiology; Registered Nurse; ADMITTING PHYSICIAN Student in an Organized Health Care Education/Training Program; ATTENDING PHYSICIAN Internal Medicine; CONSULT PHYSICIAN Internal Medicine Gastroenterology; CONSULT PHYSICIAN Internal Medicine Infectious Disease; CONSULT PHYSICIAN Specialist; EMERGENCY PHYSICIAN Emergency Medicine; FAMILY PHYSICIAN Internal Medicine; OTHER PHYSICIAN Internal Medicine Hematology & Oncology
PROC: 0FB03ZX Excision of Liver, Percutaneous Approach, Diagnostic (ICD-10-PCS; 2024-12-20)
DX: C78.7 Secondary malignant neoplasm of liver and intrahepatic bile duct (principal); I81 Portal vein thrombosis; E87.1 Hypo-osmolality and hyponatremia; E87.20 Acidosis, unspecified; N17.9 Acute kidney failure, unspecified; L03.115 Cellulitis of right lower limb; L03.116 Cellulitis of left lower limb; Z85.840 Personal history of malignant neoplasm of eye; N20.0 Calculus of kidney; D25.9 Leiomyoma of uterus, unspecified; G93.9 Disorder of brain, unspecified; Z97.0 Presence of artificial eye; C69.91 Malignant neoplasm of unspecified site of right eye; E86.0 Dehydration; K59.00 Constipation, unspecified; N30.90 Cystitis, unspecified without hematuria; Z90.01 Acquired absence of eye
CPT/HCPCS: 47000; 70553; 71250; 74177; 76705; 76942; 80048; 80053; 81003; 81015; 82248; 82570; 82805; 83605; 83690; 83735; 83880; 84300; 85025; 85027; 85610; 85730; 86705; 86706; 86709; 86803; 87040; 87070; 87077; 87086; 87186; 87340; 88307; 88341; 88342; 93005; 93306; 93970; 96360; 97162; 97530; 99152; 99153; 99284; A9575; Q9950; Q9967